=== PATIENT | male | born 1960 | race Hispanic/Latino ===

== ENCOUNTER 2016-05-13 07:58 | Emergency (ER) | payer OTHER ==
[2016-05-13 08:14] VITALS: BMI 30.4
[2016-05-13 08:18] VITALS: PULSE 85; RESP 18; TEMP 98.6; O2SAT 98
[2016-05-13 08:19] VITALS: BP 124/80
--- NOTE | 2016-05-13 09:08 | ED PDOC ---
Arrival/HPI - General Chief Complaint: Finger,Hand,&Wrist Time Seen by Provider: 05/13/16 08:31 Historian: Patient - History of Present Illness Narrative History of Present Illness (Text): 05/13/16 09:08 A 56 year old male, whose past medical history includes CAD with 3 stents on Plavix, DVT on Eliquis, Angina, diabetes, asthma and GERD, presents to the emergency department complaining of left wrist pain for 2 days. Patient reports while hiking 2 days ago he felt a sharp pain in his left hand when pushing himself on rock. Patient states the pain is worse with movement and relived at rest. Patient denies any fever, nausea, vomiting, diarrhea, chest pain, shortness of breath, numbness, tingling, weakness or any other complaints. Patient reports 2 cardiac catheterizations perfomed on left wrist, last procedure was on 03/21/2016. PMD: Emeli Conference Coordinator: Dr. Kong Time/Duration: Other (2 days) Symptom Course: Unchanged Quality: Other Context: Other Past Medical History - Provider Review Nursing Documentation Reviewed: Yes - Infectious Disease Hx of Infectious Diseases: None - Tetanus Immunization Tetanus Immunization: Unknown - Cardiac Other/Comment: 3 cardiac stent - Pulmonary Hx Respiratory Disorders: Yes (PULMONARY EMBOLISM 10-15) Hx Asthma: Yes Hx Bronchitis: Yes Hx Pneumonia: Yes - Neurological Hx Paralysis: No - HEENT Hx HEENT Disorder: No - Renal Hx Renal Disorder: No - Endocrine/Metabolic Hx Endocrine Disorders: Yes Hx Diabetes Mellitus Type 1: Yes - Hematological/Oncological Hx Blood Transfusions: No Hx Blood Transfusion Reaction: No - Integumentary Hx Dermatological Disorder: No - Musculoskeletal/Rheumatological Hx Musculoskeletal Disorders: No - Gastrointestinal Hx Gastrointestinal Disorders: Yes (CONSTIPATION) Hx Diverticulitis: No Hx Gastroesophageal Reflux: Yes - Genitourinary/Gynecological Hx Genitourinary Disorders: No - Psychiatric Hx Substance Use: No - Surgical History Hx Amputation: No Hx Appendectomy: No Hx Cardiac Catheterization: No Hx Cholecystectomy: No Hx Coronary Stent: No Hx Gastric Bypass Surgery: No Hx Hysterectomy: No Hx Joint Replacement: No Hx Kidney Transplant: No Hx Liver Transplant: No Hx Mastectomy: No Hx Open Heart Surgery: No Hx Orthopedic Surgery: No Hx Splenectomy: No Hx Valve Replacement: No Other/Comment: LEFT THUMB SCAR .WAS PUTTING UP A TENT,THUMB GOT CAUGHT IN A PEG. PER PATIENT.HAD 2 STITCHES HE STITCHED HIMSELF. - Anesthesia Hx Anesthesia Reactions: (NEVER HAD ANESTHESIA) Hx Malignant Hyperthermia: No - Suicidal Assessment Feels Threatened In Home Enviroment: No Family/Social History - Physician Review Nursing Documentation Reviewed: Yes Family/Social History: No Known Family HX Smoking Status: Former Smoker Hx Alcohol Use: Yes (BEER OCCASIONALLY QUIT.) Hx Substance Use: No Hx Substance Use Treatment: No Allergies/Home Meds Allergies/Adverse Reactions: Allergies Penicillins Adverse Reaction (Verified 08/17/15 17:20) RASH Home Medications: Home Meds Medication Instructions Recorded Confirmed Ergocalciferol (Vitamin D2) 50,000 iu PO SAT 06/08/13 05/13/16 [Vitamin D2] Insulin Glargine, Recombina 30 unit SQ DAILY 03/11/16 05/13/16 [Lantus] Loratadine [Claritin] 10 mg PO DAILY 03/11/16 05/13/16 GlipiZIDE [Glucotrol] 10 mg PO BID 04/01/16 05/13/16 Apixaban [Eliquis] 1 tab PO BID 04/08/16 05/13/16 MetFORMIN [glucoPHAGE] 1 tab PO BID 04/08/16 05/13/16 Review of Systems - Physician Review All systems were reviewed & negative as marked: Yes - Review of Systems Constitutional: absent: Fevers Respiratory: absent: SOB Cardiovascular: absent: Chest Pain Gastrointestinal: absent: Abdominal Pain, Diarrhea, Nausea, Vomiting Musculoskeletal: Other (Left wrist pain) Neurological: absent: Focal Weakness, Other (Tingling/numbness) Physical Exam Vital Signs Reviewed: Yes Vital Signs Temp Pulse Resp BP Pulse Ox 05/13/16 07:58 98.6 F 85 18 124/80 98 Temperature: Afebrile Blood Pressure: Normal Pulse: Regular Respiratory Rate: Normal Appearance: Positive for: Well-Appearing, Non-Toxic, Comfortable Pain Distress: None Mental Status: Positive for: Alert and Oriented X 3 - Systems Exam Head: Present: Atraumatic, Normocephalic Pupils: Present: PERRL Extroacular Muscles: Present: EOMI Conjunctiva: Present: Normal Upper Extremity: Present: Normal Inspection, Normal ROM, NORMAL PULSES, Tenderness (Reproducible left wrist tenderness when physically exteneded), Neurovascularly Intact, Capillary Refill < 2s, Other (Healed scars on left wrist , no warmth or erythema). No: Cyanosis, Edema, Swelling (in wrist, hand or forearm), Erythema, Temperature Abnormalties, Deformity Neurological: Present: GCS=15, CN II-XII Intact, Speech Normal Skin: Present: Warm, Dry, Normal Color. No: Rashes Psychiatric: Present: Alert, Oriented x 3, Normal Insight, Normal Concentration Medical Decision Making ED Course and Treatment: 05/13/16 09:08 Impression: A 56 year old male with left wrist pain Differential Diagnosis included but are not limited to: Left wrist pain rule out Neuropathy vs. Musculoskeletal Progress Notes: Patient refused Motrin or any pain medication at this time. He states he will take Tylenol at home. I have discussed the plan with the patient, who expresses understanding. Patient in agreement with plan to be discharged home. Patient is stable for discharge. Patient was instructed to do stretching exercises at home and follow up with physician or return if symptoms worsen or new concerning symptoms arise. - Scribe Statement The provider has reviewed the documentation as recorded by the Dae Licona Provider Scribe Attestation: All medical record entries made by the Scribe were at my direction and personally dictated by me. I have reviewed the chart and agree that the record accurately reflects my personal performance of the history, physical exam, medical decision making, and the department course for this patient. I have also personally directed, reviewed, and agree with the discharge instructions and disposition. Disposition/Present on Arrival - Present on Arrival Any Indicators Present on Arrival: No History of DVT/PE: Yes History of Uncontrolled Diabetes: No Urinary Catheter: No History of Decub. Ulcer: No History Surgical Site Infection Following: None - Disposition Have Diagnosis and Disposition been Completed?: Yes Diagnosis: Wrist pain, left, Neuropathy Disposition: HOME/ ROUTINE Disposition Time: 09:10 Patient Plan: Discharge Condition: IMPROVED Discharge Instructions (ExitCare): Peripheral Neuropathy (ED), Arthralgia (ED) Additional Instructions: Cassy Hua, thank you for letting us take care of you today. Your provider was Dr. Luis. You were treated for Neuropathy, Left Wrist Pain. The emergency medical care you received today was directed at your acute symptoms. If you were prescribed any medication, please fill it and take as directed. It may take several days for your symptoms to resolve. Return to the Emergency Department if your symptoms worsen, do not improve, or if you have any other problems. Please contact your doctor or call one of the physicians/clinics you have been referred to that are listed on the Patient Visit Information form that is included in your discharge packet. Bring any paperwork you were given at discharge with you along with any medications you are taking to your follow up visit. Our treatment cannot replace ongoing medical care by a primary care provider (PCP) outside of the emergency department. Thank you for allowing the [facility] team to be part of your care today. If you had an X-Ray or CT scan: A Radiologist will review the ED reading if any change in treatment is needed we will contact you. If you had a blood, urine, or wound culture: It will take several days for the results, if any change in treatment is needed we will contact you. If you had an STI test: It will take 48 hours for the results. Please call after 1 week if you have not heard back. Referrals: Melissa Sainz MD [Primary Care Provider] - Follow up with primary Forms: WORK NOTE
== END 2016-05-13 09:15 | disposition home or self-care (01) ==
LOC: ED 07:58
DX: M25.532 Pain in left wrist (principal); G62.9 Polyneuropathy, unspecified

== ENCOUNTER 2016-08-16 23:10 | Emergency (ER) | payer OTHER ==
[2016-08-16 23:17] VITALS: BMI 29.1
[2016-08-16 23:27] VITALS: RESP 16; TEMP 98.1
--- NOTE | 2016-08-16 23:48 | ED PDOC ---
Arrival/HPI - General Chief Complaint: Finger,Hand,&Wrist Time Seen by Provider: 08/16/16 23:23 Historian: Patient - History of Present Illness Narrative History of Present Illness (Text): 08/16/16 23:49 Patient reports injuring his right hand when when he fell at home 4 days ago. Patient states that he went for an outpatient x-ray of his right hand and was diagnosed with a fracture at the fifth metacarpal, was advised to follow-up with an orthopedist. He states that he was able to obtain an appointment with an orthopedic doctor in [place] 12 days from today, however he does not have a splint on his right hand. Patient states that he is here today for concern of continued swelling and that he is on Eliquis and Plavix. Otherwise: (-) other injury, (-) numbness. PMD Emeli Past Medical History - Provider Review Nursing Documentation Reviewed: Yes - Infectious Disease Hx of Infectious Diseases: None - Tetanus Immunization Tetanus Immunization: Unknown - Cardiac Hx Cardiac Disorders: Yes Other/Comment: 3 cardiac stent - Pulmonary Hx Respiratory Disorders: Yes (PULMONARY EMBOLISM 10-15) Hx Asthma: Yes Hx Bronchitis: Yes Hx Pneumonia: Yes - Neurological Hx Paralysis: No - HEENT Hx HEENT Disorder: No - Renal Hx Renal Disorder: No - Endocrine/Metabolic Hx Endocrine Disorders: Yes Hx Diabetes Mellitus Type 1: Yes - Hematological/Oncological Hx Blood Transfusions: No Hx Blood Transfusion Reaction: No - Integumentary Hx Dermatological Disorder: No - Musculoskeletal/Rheumatological Hx Musculoskeletal Disorders: No - Gastrointestinal Hx Gastrointestinal Disorders: Yes (CONSTIPATION) Hx Diverticulitis: No Hx Gastroesophageal Reflux: Yes - Genitourinary/Gynecological Hx Genitourinary Disorders: No - Psychiatric Hx Emotional Abuse: No Hx Physical Abuse: No Hx Substance Use: No - Surgical History Hx Amputation: No Hx Appendectomy: No Hx Cardiac Catheterization: No Hx Cholecystectomy: No Hx Coronary Stent: No Hx Gastric Bypass Surgery: No Hx Hysterectomy: No Hx Joint Replacement: No Hx Kidney Transplant: No Hx Liver Transplant: No Hx Mastectomy: No Hx Open Heart Surgery: No Hx Orthopedic Surgery: No Hx Splenectomy: No Hx Valve Replacement: No Other/Comment: LEFT THUMB SCAR .WAS PUTTING UP A TENT,THUMB GOT CAUGHT IN A PEG. PER PATIENT.HAD 2 STITCHES HE STITCHED HIMSELF. (from previous triage) - Anesthesia Hx Anesthesia: Yes Hx Anesthesia Reactions: (NEVER HAD ANESTHESIA) Hx Malignant Hyperthermia: No - Suicidal Assessment Feels Threatened In Home Enviroment: No Family/Social History - Physician Review Nursing Documentation Reviewed: Yes Family/Social History: No Known Family HX Smoking Status: Former Smoker Hx Alcohol Use: Yes (BEER OCCASIONALLY QUIT.) Hx Substance Use: No Hx Substance Use Treatment: No Allergies/Home Meds Allergies/Adverse Reactions: Allergies peanut Allergy (Verified 08/16/16 23:17) RASH Penicillins Adverse Reaction (Verified 08/17/15 17:20) RASH Home Medications: Home Meds Medication Instructions Recorded Confirmed Ergocalciferol (Vitamin D2) 50,000 iu PO SAT 06/08/13 08/16/16 [Vitamin D2] Loratadine [Claritin] 10 mg PO DAILY 03/11/16 08/16/16 Apixaban [Eliquis] 1 tab PO BID 04/08/16 08/16/16 MetFORMIN [glucoPHAGE] 1 tab PO BID 04/08/16 08/16/16 Folic Acid [Folic Acid] 1 mg PO DAILY 08/16/16 08/16/16 Gemfibrozil [Lopid] 600 mg PO DAILY 08/16/16 08/16/16 Naproxen [Naprosyn] 500 mg PO BID 08/16/16 08/16/16 Repaglinide [Prandin] 2 mg PO TID 08/16/16 08/16/16 Review of Systems - Review of Systems Constitutional: Normal. absent: Fatigue, Weight Change, Fevers Musculoskeletal: Normal, Arthralgias. absent: Back Pain, Neck Pain Skin: Normal. absent: Rash, Pruritis, Skin Lesions Physical Exam - Physical Exam Narrative Physical Exam (Text): 08/16/16 23:48 GENERAL APPEARANCE: Patient is awake, alert, oriented x 3, in no acute distress. SKIN: Warm, (-) rash, (-) lesions. UPPER EXTREMITY: (+) Tenderness, (+) mild swelling, (-) ecchymosis of the dorsal aspect of the right hand; (-) crepitus, (-) deformity. Tendon function intact. (-) distal neurovascular deficit. 2 point discrimination intact. Remainder of hand, digits and wrist: (-) injury. Vital Signs Temp Pulse Resp BP Pulse Ox 08/16/16 23:26 98.1 F 74 16 143/92 H 97 Medical Decision Making ED Course and Treatment: 08/16/16 23:46 48-year-old male presents to the emergency room for swelling and bruising to the right hand after he tripped and fell and sustained a fracture. Orthoglass ulnar gutter splint and shoulder sling applied by PA. Neurovascular intact post splint application. Patient advised to not remove the splint and to follow up with orthopedic doctor as scheduled. Patient states he fully agrees with and understands discharge instructions. States that heagrees with the plan and disposition. Verbalized and repeated discharge instructions and plan. I have given the patient opportunity to ask any additional questions. Follow up with orthopedic doctor in 1-2 days without fail. Return to the emergency room at any time for any new or worsening symptoms. - PA / [employer] / Resident Statement /DO has reviewed & agrees with the documentation as recorded. Disposition/Present on Arrival - Present on Arrival Any Indicators Present on Arrival: Yes History of DVT/PE: Yes History of Uncontrolled Diabetes: No Urinary Catheter: No History of Decub. Ulcer: No History Surgical Site Infection Following: None - Disposition Have Diagnosis and Disposition been Completed?: Yes Diagnosis: Hand fracture, right Disposition: HOME/ ROUTINE Disposition Time: 23:30 Patient Plan: Discharge Patient Problems: Current Active Problems Problem Status Onset Hand fracture, right Acute Condition: STABLE Discharge Instructions (ExitCare): Hand Fracture (ED) Print Language: WELSH Additional Instructions: Follow-up with orthopedic doctor as scheduled. Do not remove the splint. Take [id number] Tylenol as needed for pain. Return the ER at any time for any new or worsening symptoms. Referrals: Melissa Sainz MD [Primary Care Provider] - Follow up with primary
[2016-08-17 00:01] VITALS: BP 140/89; PULSE 70; O2SAT 98
== END 2016-08-17 00:01 | disposition home or self-care (01) ==
LOC: ED 23:10
DX: S62.396D Other fracture of fifth metacarpal bone, right hand, subsequent encounter for fracture with routine healing (principal); W01.0XXD Fall on same level from slipping, tripping and stumbling without subsequent striking against object, subsequent encounter

== ENCOUNTER 2016-10-03 19:55 | Observation (INO) | payer OTHER ==
[2016-10-03 19:56] VITALS: BMI 28.5
[2016-10-03 21:05] LABS: HEMATOCRIT 38.8 % (42.0-52.0); MEAN CORPUSCULAR HEMOGLOBIN 27.6 pg (25.0-35.0); MEAN PLATELET VOLUME 9.8 fl (7.0-11.0); RED CELL DISTRIBUTION WIDTH 12.9 % (11.5-14.5)
[2016-10-03 21:17] LABS: ALB/GLOB RATIO 1.6 (1.1-1.8); ALKALINE PHOSPHATASE 65 U/L (38-133); ALT/SGPT 33 U/L (7-56); AST/SGOT 16 U/L (15-59); BILIRUBIN,TOTAL 0.3 mg/dL (0.2-1.3); BLOOD UREA NITROGEN 19 mg/dL (7-21); CALCIUM 9.2 mg/dL (8.4-10.5); CARBON DIOXIDE 27 mmol/L (21-33); CHLORIDE 104 mmol/L (95-110); GFR AFRICAN-AMERICAN > 60; GLUCOSE,RANDOM 214 mg/dL (70-110); POTASSIUM 4.1 mmol/L (3.6-5.0); SODIUM 140 mmol/L (132-148); TOTAL PROTEIN 6.4 g/dL (5.8-8.3)
[2016-10-03 21:24] LABS: INR 1.04 (0.93-1.08); PARTIAL THROMBOPLASTIN TIME 25.7 Seconds (23.7-30.8)
[2016-10-03 21:30] LABS: TROPONIN I < 0.01 ng/mL
--- NOTE | 2016-10-03 22:35 | ED PDOC ---
Arrival/HPI - General Chief Complaint: Back Pain Time Seen by Provider: 10/03/16 20:23 Historian: Patient - History of Present Illness Narrative History of Present Illness (Text): 10/03/16 20:45 Brayan Sequeira is a 56 year old male, whose past medical history includes diabetes and CAD s/p multiple stents, who presents to the ED for chest pressure since this evening. Patient states while he was at the library and was apparently involved in any argument earlier. Patient states he came to the ER due to the chest discomfort, but notes at present time chest discomfort has improved. Patient reports some back discomfort earlier, denies any currently. Patient denies any shortness of breath, fever, chills, cough, abdominal pain, nausea, vomiting, diarrhea, neck pain, headache, dizziness, or any other complaints. Symptom Onset: Gradual Symptom Course: Unchanged Quality: Pressure Activities at Onset: Light Context: Other (Library) Past Medical History - Provider Review Nursing Documentation Reviewed: Yes - Infectious Disease Hx of Infectious Diseases: None - Tetanus Immunization Tetanus Immunization: Unknown - Cardiac Hx Cardiac Disorders: Yes Hx Hypertension: Yes - Pulmonary Hx Respiratory Disorders: Yes (PULMONARY EMBOLISM 10-15) Hx Asthma: Yes Hx Bronchitis: Yes Hx Pneumonia: Yes - Neurological Hx Neurological Disorder: No Hx Paralysis: No - HEENT Hx HEENT Disorder: No - Renal Hx Renal Disorder: No - Endocrine/Metabolic Hx Endocrine Disorders: Yes Hx Diabetes Mellitus Type 2: Yes - Hematological/Oncological Hx Blood Disorders: No Hx Blood Transfusions: No Hx Blood Transfusion Reaction: No - Integumentary Hx Dermatological Disorder: No - Musculoskeletal/Rheumatological Hx Musculoskeletal Disorders: No - Gastrointestinal Hx Gastrointestinal Disorders: Yes (CONSTIPATION) Hx Diverticulitis: No Hx Gastroesophageal Reflux: Yes - Genitourinary/Gynecological Hx Genitourinary Disorders: No - Psychiatric Hx Emotional Abuse: No Hx Physical Abuse: No Hx Substance Use: No - Surgical History Hx Amputation: No Hx Appendectomy: No Hx Cardiac Catheterization: Yes (x3) Hx Cholecystectomy: No Hx Coronary Stent: No Hx Gastric Bypass Surgery: No Hx Hysterectomy: No Hx Joint Replacement: No Hx Kidney Transplant: No Hx Liver Transplant: No Hx Mastectomy: No Hx Open Heart Surgery: No Hx Orthopedic Surgery: No Hx Splenectomy: No Hx Valve Replacement: No - Anesthesia Hx Anesthesia: Yes Hx Anesthesia Reactions: (NEVER HAD ANESTHESIA) Hx Malignant Hyperthermia: No - Suicidal Assessment Feels Threatened In Home Enviroment: No Family/Social History - Physician Review Nursing Documentation Reviewed: Yes Family/Social History: Unknown Family HX Smoking Status: Former Smoker Hx Alcohol Use: Yes (BEER OCCASIONALLY QUIT.) Hx Substance Use: No Hx Substance Use Treatment: No Allergies/Home Meds Allergies/Adverse Reactions: Allergies peanut Allergy (Verified 10/03/16 20:08) RASH Penicillins Adverse Reaction (Verified 10/03/16 20:08) RASH Home Medications: Home Meds Medication Instructions Recorded Confirmed Apixaban [Eliquis] 1 tab PO BID 04/08/16 10/03/16 MetFORMIN [glucoPHAGE] 1 tab PO BID 04/08/16 10/03/16 SITagliptin [Januvia] 0 mg PO DAILY 10/03/16 10/03/16 Review of Systems - Physician Review All systems were reviewed & negative as marked: Yes - Review of Systems Constitutional: Normal. absent: Fevers Eyes: Normal ENT: Normal Respiratory: Normal. absent: SOB, Cough Cardiovascular: Chest Pain Gastrointestinal: Normal. absent: Abdominal Pain, Diarrhea, Nausea, Vomiting Genitourinary Male: Normal. absent: Dysuria, Frequency, Hematuria, Urinary Output Changes Musculoskeletal: Normal. absent: Back Pain, Neck Pain Skin: Normal. absent: Rash Neurological: Normal. absent: Headache, Dizziness Endocrine: Normal Hemo/Lymphatic: Normal Psychiatric: Normal Physical Exam Vital Signs Reviewed: Yes Vital Signs Pulse Resp BP Pulse Ox 10/03/16 23:15 74 18 131/80 97 10/03/16 20:15 76 16 130/90 98 Temperature: Afebrile Blood Pressure: Normal Pulse: Regular Respiratory Rate: Normal Appearance: Positive for: Well-Appearing, Non-Toxic, Comfortable Pain Distress: None Mental Status: Positive for: Alert and Oriented X 3 - Systems Exam Head: Present: Atraumatic, Normocephalic Pupils: Present: PERRL Extroacular Muscles: Present: EOMI Conjunctiva: Present: Normal Mouth: Present: Moist Mucous Membranes Neck: Present: Normal Range of Motion Respiratory/Chest: Present: Clear to Auscultation, Good Air Exchange. No: Respiratory Distress, Accessory Muscle Use Cardiovascular: Present: Regular Rate and Rhythm, Normal S1, S2. No: Murmurs Abdomen: Present: Normal Bowel Sounds. No: Tenderness, Distention, Peritoneal Signs Back: Present: Normal Inspection Upper Extremity: Present: Normal Inspection. No: Cyanosis, Edema Lower Extremity: Present: Normal Inspection. No: Edema Neurological: Present: GCS=15, CN II-XII Intact, Speech Normal Skin: Present: Warm, Dry, Normal Color. No: Rashes Psychiatric: Present: Alert, Oriented x 3, Normal Insight, Normal Concentration Medical Decision Making ED Course and Treatment: 10/03/16 20:45 Impression: 56 year old male c/o chest pressure today. Plan: -- EKG -- CXR -- Labs, cardiac enzymes -- Reassess and disposition Progress Notes: Reviewed EKG, NSR at [address] Non-specific ST/T wave changes. Pt refused CXR. 10/03/16 23:45 Case discussed with medical microbiologist production leader, who is aware and agrees with plan. 10/03/16 23:[address] Kim, who is aware and agrees with plan. Accepts pt in to hospitalist service. - Lab Interpretations Lab Results: 10/03/16 20:45 10/03/16 20:45 Lab Results 10/03/16 20:45: WBC 7.0, RBC 4.79, Hgb 13.2 L, Hct 38.8 L, MCV 81.0, MCH 27.6, MCHC 34.0, RDW 12.9, Plt Count 189, MPV 9.8 10/03/16 20:45: Sodium 140, Potassium 4.1, Chloride 104, Carbon Dioxide 27, Anion Gap 13, BUN 19, Creatinine 0.8, Est GFR ( Amer) > 60, Est GFR (Non- Af Amer) > 60, Random Glucose 214 H, Calcium 9.2, Total Bilirubin 0.3, AST 16, ALT 33, Alkaline Phosphatase 65, Lactate Dehydrogenase 386, Total Creatine Kinase 116, Troponin I < 0.01, Total Protein 6.4, Albumin 3.9, Globulin 2.5, Albumin/Globulin Ratio 1.6 10/03/16 20:45: PT 11.2, INR 1.04, APTT 25.7 I have reviewed the lab results: Yes - EKG Interpretation Interpreted by ED Physician: Yes Type: 12 lead EKG - Medication Orders Current Medication Orders: Acetaminophen (Tylenol 325mg Tab) 650 mg PO Q6H PRN PRN Reason: Pain, moderate (4-7) Apixaban (Eliquis) 5 mg PO BID [facility] PRN Reason: Protocol Clopidogrel Bisulfate (Plavix) 75 mg PO DAILY [facility] Pantoprazole Sodium (Protonix Inj) 40 mg IVP DAILY [facility] Sitagliptin Phosphate (Januvia) 100 mg PO DAILY [facility] Discontinued Medications Aspirin (Aspirin) 325 mg PO STAT [facility] Stop: 10/04/16 01:12 Last Admin: 10/04/16 02:30 Dose: - Scribe Statement The provider has reviewed the documentation as recorded by the Dae Campuzano Provider Scribe Attestation: All medical record entries made by the Osmelibwill were at my direction and personally dictated by me. I have reviewed the chart and agree that the record accurately reflects my personal performance of the history, physical exam, medical decision making, and the department course for this patient. I have also personally directed, reviewed, and agree with the discharge instructions and disposition. Disposition/Present on Arrival - Present on Arrival Any Indicators Present on Arrival: No History of DVT/PE: Yes History of Uncontrolled Diabetes: No Urinary Catheter: No History of Decub. Ulcer: No History Surgical Site Infection Following: None - Disposition Have Diagnosis and Disposition been Completed?: Yes Diagnosis: Chest pain Disposition: HOSPITALIZED Disposition Time: 23:52 Patient Plan: Observation Patient Problems: Current Active Problems Problem Status Onset Chest pain Acute Condition: STABLE
--- NOTE | 2016-10-04 01:05 | CP.PCM.HP ---
<Nolan Mack - Last Filed: 10/04/16 01:18> History of Present Illness - History of Present Illness History of Present Illness: CC: Chest discomfort/back pain HPI: Patient is a 56 year old male with PMH sig for DM2, DVT, PE, CAD s/p PTCA of LADx3, HLD, and hx of HTN who presents via EMS complaining of chest discomfort. Patient reports earlier this evening he was at the local library trying to access a computer and was in a verbal altercation with the staff. He reports that the incident was a stressful event and that as a result he began feeling symptoms of elevated heart rate, chest pressure and some mild back pain located between his shoulder blades. He denies any sharp pain, nor radiation of chest discomfort. He states that at the time of the event he did become nauseous but denies vomiting or diaphoresis. Patient reports one hour after onset he began to feel more at his baseline. He denies taking any nitro or pain relieving medication. Associated symptoms include ANGELES and mild numbness in legs. He denies abdominal pain, fever, chills or syncope. 12 point ROS negative except for what is mentioned in HPI. PMH: As above PSH: None FMH: Strong for DM2, uknown for father SOCHX: Tobacco: Denies, ETOH: Denies, ID: Denies ALL: PCN, Peanuts MEDS: - Lantus 30 units a day - Metformin 1000 mg a day - Plavix 75mg daily - Eliquis 5mg BID - Glipizide 10mg daily - Januvia 100mg daily PMD: Dr. Aguirre Present on Admission - Present on Admission Any Indicators Present on Admission: Yes History of DVT/PE: Yes History of Uncontrolled Diabetes: No Urinary Catheter: No Decubitus Ulcer Present: No Review of Systems - Review of Systems All systems: reviewed and no additional remarkable complaints except Review of Systems: except for mentioned in HPI Past Patient History - Infectious Disease Hx of Infectious Diseases: None - Tetanus Immunizations Tetanus Immunization: Unknown - Past Social History Smoking Status: Former Smoker Alcohol: None Drugs: Denies - CARDIAC Hx Cardiac Disorders: Yes Hx Hypertension: Yes - PULMONARY Hx Respiratory Disorders: Yes (PULMONARY EMBOLISM 10-15) Hx Asthma: Yes Hx Bronchitis: Yes Hx Pneumonia: Yes - NEUROLOGICAL Hx Neurological Disorder: No Hx Paralysis: No - HEENT Hx HEENT Problems: No - RENAL Hx Chronic Kidney Disease: No - ENDOCRINE/METABOLIC Hx Endocrine Disorders: Yes Hx Diabetes Mellitus Type 2: Yes - HEMATOLOGICAL/ONCOLOGICAL Hx Blood Disorders: No Hx Blood Transfusions: No Hx Blood Transfusion Reaction: No - INTEGUMENTARY Hx Dermatological Problems: No - MUSCULOSKELETAL/RHEUMATOLOGICAL Hx Musculoskeletal Disorders: No - GASTROINTESTINAL Hx Gastrointestinal Disorders: Yes (CONSTIPATION) Hx Diverticulitis: No Hx Gastroesophageal Reflux: Yes - GENITOURINARY/GYNECOLOGICAL Hx Genitourinary Disorders: No - PSYCHIATRIC Hx Emotional Abuse: No Hx Physical Abuse: No Hx Substance Use: No - SURGICAL HISTORY Hx Amputation: No Hx Appendectomy: No Hx Cardiac Catheterization: Yes (x3) Hx Cholecystectomy: No Hx Coronary Stent: No Hx Gastric Bypass Surgery: No Hx Hysterectomy: No Hx Joint Replacement: No Hx Kidney Transplant: No Hx Liver Transplant: No Hx Mastectomy: No Hx Open Heart Surgery: No Hx Orthopedic Surgery: No Hx Splenectomy: No Hx Valve Replacement: No - ANESTHESIA Hx Anesthesia: Yes Hx Anesthesia Reactions: (NEVER HAD ANESTHESIA) Hx Malignant Hyperthermia: No Meds Allergies/Adverse Reactions: Allergies Allergy/AdvReac Type Severity Reaction Status Date / Time peanut Allergy RASH Verified 10/03/16 20:08 Penicillins AdvReac RASH Verified 10/03/16 20:08 Physical Exam - Head Exam Head Exam: ATRAUMATIC, NORMAL INSPECTION, NORMOCEPHALIC - Eye Exam Eye Exam: EOMI, PERRL - ENT Exam ENT Exam: Mucous Membranes Moist, Normal Exam - Neck Exam Neck exam: Positive for: Normal Inspection - Respiratory Exam Respiratory Exam: Clear to Auscultation Bilateral, NORMAL BREATHING PATTERN - Cardiovascular Exam Cardiovascular Exam: REGULAR RHYTHM, +S1, +S2. absent: Tachycardia, JVD - GI/Abdominal Exam GI & Abdominal Exam: Normal Bowel Sounds, Soft - Extremities Exam Extremities exam: Positive for: full ROM, normal inspection, pedal pulses present. Negative for: calf tenderness, pedal edema - Back Exam Back exam: FULL ROM, NORMAL INSPECTION - Neurological Exam Neurological exam: Alert, CN II-XII Intact, Normal Gait, Oriented x3, Reflexes Normal - Psychiatric Exam Psychiatric exam: Normal Affect, Normal Mood - Skin Skin Exam: Dry, Intact, Normal Color, Warm Results - Labs Result Diagrams: 10/03/16 20:45 10/03/16 20:45 Assessment & Plan - Assessment and Plan (Free Text) Assessment: Patient is a 56 year old male with PMH sig for DM2, DVT, PE, CAD s/p PTCA of LADx3, HLD, and hx of HTN who presents via EMS complaining of chest discomfort. He is being monitored and evaluated for his chest discomfort. Plan: 1. Atypical Chest Pain - EKG NSR, NO ST segment elevations/depression or T wave inversions - Hx of CAD s/p 3 stents, recent stress test in 09/2016 found to be normal - Troponin negative x1, trend troponins x2 - Cardio consult, Dr. Dilan Perez - ASA 325mg - npo 2. Hx of DVT/PE - Continue Eliquis 5mg BID - PT/INR check 3. Hx of DM2 - Januvia, hold metformin - ACHS 4. Hx of HTN - Stable, continue to monitor 5. GI ppx - Protonix Case discussed and reviewed with attending - Date & Time Date: 10/04/16 Time: 01:06 <Stu Kim P - Last Filed: 10/04/16 06:44> Results - Vital Signs Recent Vital Signs: Last Vital Signs Temp Pulse 74 10/03/16 23:15 Resp 18 10/03/16 23:15 BP 131/80 10/03/16 23:15 Pulse Ox 97 10/03/16 23:15 - Labs Result Diagrams: 10/04/16 03:05 10/04/16 03:05 Labs: Laboratory Results - last 24 hr 10/04/16 10/04/16 10/04/16 03:05 03:05 03:05 WBC 7.5 RBC 4.77 Hgb 13.2 L Hct 38.6 L MCV 80.9 MCH 27.7 MCHC 34.2 RDW 13.0 Plt Count 171 MPV 9.4 Gran % 57.0 Lymph % (Auto) 30.7 [place] % (Auto) 9.4 H Eos % (Auto) 2.4 Baso % (Auto) 0.5 Gran # 4.28 Lymph # 2.3 [place] # 0.7 H Eos # 0.2 Baso # 0.04 PT 11.4 INR 1.06 Sodium 140 Potassium 3.8 Chloride 103 Carbon Dioxide 28 Anion Gap 13 BUN 18 Creatinine 0.8 Est GFR ( Amer) > 60 Est GFR (Non-Af Amer) > 60 Random Glucose 204 H Calcium 9.1 Total Bilirubin 0.4 AST 24 ALT 38 Alkaline Phosphatase 56 Troponin I < 0.01 Total Protein 6.4 Albumin 3.8 Globulin 2.6 Albumin/Globulin Ratio 1.5 Attending/Attestation - Attestation I have personally seen and examined this patient.: Yes I have fully participated in the care of the patient.: Yes I have reviewed all pertinent clinical information: Yes Notes (Text): Assessment * Atypical CP after verbal altercation, with initial negative w/u, recent negative stress test * H/o CAD LAD x3 stents last mar, 2016 * H/o DVT/PE in Nov 2014, with history of relative imobility with driving still on Eliquis * IDDM Plan * Serial enzymes * Observe in tele.
[2016-10-04 03:10] LABS: ADD MANUAL DIFF? NO
[2016-10-04 03:19] LABS: BASO # 0.04 K/mm3 (0.0-2.0); BASO % 0.5 % (0.0-3.0); EOS # 0.2 (0.0-0.7); EOS % 2.4 % (1.5-5.0); GRAN # 4.28 (1.4-6.5); HEMATOCRIT 38.6 % (42.0-52.0); LYMPH # 2.3 (1.2-3.4); LYMPH % 30.7 % (22.0-35.0); MEAN CELL VOLUME 80.9 fl (80.0-105.0); MEAN CORPUSCULAR HEMOGLOBIN 27.7 pg (25.0-35.0); MEAN CORPUSCULAR HGB CONC 34.2 g/dl (31.0-37.0); MEAN PLATELET VOLUME 9.4 fl (7.0-11.0); MONO # 0.7 (0.1-0.6); MONO % 9.4 % (1.0-6.0); PLATELET COUNT 171 10^3/uL (120.0-450.0); WHITE BLOOD COUNT 7.5 10^3/ul (4.5-11.0)
[2016-10-04 03:23] LABS: INR 1.06 (0.93-1.08)
[2016-10-04 03:26] LABS: ALB/GLOB RATIO 1.5 (1.1-1.8); ALKALINE PHOSPHATASE 56 U/L (38-133); ALT/SGPT 38 U/L (7-56); AST/SGOT 24 U/L (15-59); BILIRUBIN,TOTAL 0.4 mg/dL (0.2-1.3); BLOOD UREA NITROGEN 18 mg/dL (7-21); CALCIUM 9.1 mg/dL (8.4-10.5); CARBON DIOXIDE 28 mmol/L (21-33); CHLORIDE 103 mmol/L (95-110); GFR AFRICAN-AMERICAN > 60; GLUCOSE,RANDOM 204 mg/dL (70-110); POTASSIUM 3.8 mmol/L (3.6-5.0); SODIUM 140 mmol/L (132-148); TOTAL PROTEIN 6.4 g/dL (5.8-8.3)
[2016-10-04 04:27] LABS: TROPONIN I < 0.01 ng/mL
--- NOTE | 2016-10-04 06:31 | CP.PCM.DIS ---
Provider - Provider Date of Admission: 10/03/16 23:50 Attending physician: Blayne Du MD Primary care physician: Zulema Aguirre MD Time Spent in preparation of Discharge (in minutes): 30 Hospital Course - Lab Results Lab Results: Most Recent Lab Values WBC 7.5 10^3/ul (4.5-11.0) 10/04/16 03:05 RBC 4.77 10^6/uL (3.5-6.1) 10/04/16 03:05 Hgb 13.2 g/dL (14.0-18.0) L 10/04/16 03:05 Hct 38.6 % (42.0-52.0) L 10/04/16 03:05 MCV 80.9 fl (80.0-105.0) 10/04/16 03:05 MCH 27.7 pg (25.0-35.0) 10/04/16 03:05 MCHC 34.2 g/dl (31.0-37.0) 10/04/16 03:05 RDW 13.0 % (11.5-14.5) 10/04/16 03:05 Plt Count 171 10^3/uL (120.0-450.0) 10/04/16 03:05 MPV 9.4 fl (7.0-11.0) 10/04/16 03:05 Gran % 57.0 % (50.0-68.0) 10/04/16 03:05 Lymph % (Auto) 30.7 % (22.0-35.0) 10/04/16 03:05 [place] % (Auto) 9.4 % (1.0-6.0) H 10/04/16 03:05 Eos % (Auto) 2.4 % (1.5-5.0) 10/04/16 03:05 Baso % (Auto) 0.5 % (0.0-3.0) 10/04/16 03:05 Gran # 4.28 (1.4-6.5) 10/04/16 03:05 Lymph # 2.3 (1.2-3.4) 10/04/16 03:05 [place] # 0.7 (0.1-0.6) H 10/04/16 03:05 Eos # 0.2 (0.0-0.7) 10/04/16 03:05 Baso # 0.04 K/mm3 (0.0-2.0) 10/04/16 03:05 PT 11.4 Seconds (9.9-11.8) 10/04/16 03:05 INR 1.06 (0.93-1.08) 10/04/16 03:05 APTT 25.7 Seconds (23.7-30.8) 10/03/16 20:45 Sodium 140 mmol/L (132-148) 10/04/16 03:05 Potassium 3.8 mmol/L (3.6-5.0) 10/04/16 03:05 Chloride 103 mmol/L (95-110) 10/04/16 03:05 Carbon Dioxide 28 mmol/L (21-33) 10/04/16 03:05 Anion Gap 13 (10-20) 10/04/16 03:05 BUN 18 mg/dL (7-21) 10/04/16 03:05 Creatinine 0.8 mg/dL (0.5-1.4) 10/04/16 03:05 Est GFR ( Amer) > 60 10/04/16 03:05 Est GFR (Non-Af Amer) > 60 10/04/16 03:05 Random Glucose 204 mg/dL (70-110) H 10/04/16 03:05 Calcium 9.1 mg/dL (8.4-10.5) 10/04/16 03:05 Total Bilirubin 0.4 mg/dL (0.2-1.3) 10/04/16 03:05 AST 24 U/L (15-59) 10/04/16 03:05 ALT 38 U/L (7-56) 10/04/16 03:05 Alkaline Phosphatase 56 U/L (38-133) 10/04/16 03:05 Lactate Dehydrogenase 386 U/L (333-699) 10/03/16 20:45 Total Creatine Kinase 116 U/L (35-230) 10/03/16 20:45 Troponin I < 0.01 ng/mL 10/04/16 03:05 Total Protein 6.4 g/dL (5.8-8.3) 10/04/16 03:05 Albumin 3.8 g/dL (3.0-4.8) 10/04/16 03:05 Globulin 2.6 gm/dL 10/04/16 03:05 Albumin/Globulin Ratio 1.5 (1.1-1.8) 10/04/16 03:05 - Hospital Course Hospital Course: Patient is a 56 year old male who presented with chest discomfort and back pain following a stressful event at the local library earlier on 10/03/2016. Patient was evaluated for atypical chest pain with initial troponin read as negative. Troponin was trended x2 and records were reviewed. Patient was noted to have negative stress test recently prior to admission. Patient was noted to have history of DVT/PE and his eliquis was continued. Patient was admitted to telemetry for observation. Patient decided to leave against medical advice. He was advised of the risks involved including but not limited to heart attack, stroke and . Patient was told to follow up with PMD, water supply technician and other specialists after leaving. Patient was advised to return to the hospital if his symptoms returned or worsened. He was agreeable and was in understanding following discussion. - Date & Time of H&P Date of H&P: 10/04/16 Time of H&P: 20:30 Discharge Exam - Head Exam Head Exam: ATRAUMATIC, NORMAL INSPECTION, NORMOCEPHALIC - Eye Exam Eye Exam: EOMI, PERRL Pupil Exam: PERRL - Respiratory Exam Respiratory Exam: Clear to PA & Lateral, NORMAL BREATHING PATTERN, UNREMARKABLE - Cardiovascular Exam Cardiovascular Exam: REGULAR RHYTHM, +S1, +S2 - GI/Abdominal Exam GI & Abdominal Exam: Normal Bowel Sounds, Soft - Extremities Exam Extremities exam: normal inspection, pedal pulses present - Neurological Exam Neurological exam: Alert, CN II-XII Intact, Normal Gait, Oriented x3, Reflexes Normal - Psychiatric Exam Psychiatric exam: Normal Affect, Normal Mood - Skin Skin Exam: Dry, Intact, Normal Color, Warm Discharge Plan - Follow Up Plan Condition: STABLE Disposition: AGAINST MEDICAL ADVICE Instructions: Chest Pain (DC), Chest Pain (GEN), Pulmonary Embolism (DC), Pulmonary Embolism (GEN), Deep Venous Thrombosis (ED), Deep Venous Thrombosis ( DC), Deep Venous Thrombosis (GEN), Leg Edema (ED) Additional Instructions: 1. Please follow up with PMD with in one week 2. Please follow up with water supply technician in one week 3. Please return to hospital if symptoms return or worsen 4. Please take medications as prescribed Patient in agreement and in understanding with plan Referrals: Zulema Aguirre MD [Primary Care Provider] - Follow up with primary
[2016-10-04 06:48] VITALS: BP 120/76; PULSE 76; RESP 20; TEMP 97.8; O2SAT 98
--- NOTE | 2016-10-04 09:37 | CARD ---
APPROVED REPORT EKG Measurement Heart [id number] <Conclusion> Normal sinus rhythm RSR' or QR pattern in V1 suggests right ventricular conduction delay Borderline ECG
== END 2016-10-04 06:52 | disposition left against medical advice (07) ==
LOC: ED 19:55 → ERH 23:50 → 2RNO 10-04 01:03
PROVIDERS: ADMIT Internal Medicine; ATTEND Internal Medicine
DX: R07.89 Other chest pain (principal); E11.9 Type 2 diabetes mellitus without complications; E78.5 Hyperlipidemia, unspecified; I10 Essential (primary) hypertension; I25.10 Atherosclerotic heart disease of native coronary artery without angina pectoris; J45.909 Unspecified asthma, uncomplicated; K21.9 Gastro-esophageal reflux disease without esophagitis; Z79.4 Long term (current) use of insulin; Z83.3 Family history of diabetes mellitus; Z86.711 Personal history of pulmonary embolism; Z86.718 Personal history of other venous thrombosis and embolism; Z87.01 Personal history of pneumonia (recurrent); Z87.891 Personal history of nicotine dependence; Z95.5 Presence of coronary angioplasty implant and graft; K59.00 Constipation, unspecified; Z88.0 Allergy status to penicillin; Z91.010 Allergy to peanuts
CPT/HCPCS: 36415; 80053; 82550; 82948; 83615; 84484; 85025; 85027; 85610; 85730; 93005; 99285; G0378

== ENCOUNTER 2016-11-03 07:12 | Emergency (ER) | payer OTHER ==
[2016-11-03 07:13] VITALS: BMI 28.5
[2016-11-03 07:48] VITALS: RESP 16; TEMP 98.1
--- NOTE | 2016-11-03 08:13 | ED PDOC ---
Arrival/HPI - General Historian: Patient - History of Present Illness Time/Duration: < week Symptom Onset: Sudden Symptom Course: Unchanged Quality: Pressure Severity Level: 9 <Boris Hernandez - Last Filed: 11/03/16 14:26> <Ximena Salcido - Last Filed: 11/03/16 17:41> - General Chief Complaint: Lower Extremity Problem/Injury Time Seen by Provider: 11/03/16 07:42 - History of Present Illness Narrative History of Present Illness (Text): 11/03/16 08:05 This is a 56 year old male with PMHx DM2, DVT, PE, CAD s/p PCI, HLD, HTN who presents complaining of right lower extremity pain for the past 2 days. Patient states that this feels different from his DVT in 2014 because at the time, pain was localized. Pain on this leg is diffuse and described as a 9/10 pressure sensation. It begins on the mid-anterior thigh and radiates up and down through the whole circumference of the extremity and up to his back per patient. Patient states that he does have back pain but states that it is non- contributory to his current pain and is not radiating down the leg. Patient complains of weakness and unsteady gait secondary to pain. Pain exacerbates with movement and standing but relieved with rest. Patient denies recent trauma to the extremity but admits to history of meniscal injury in the right knee which has not yet been treated. Patient denies fever, chills, chest pain, SOB, abdominal pain, dysuria. PMHx: DM, DVT, PE, CAD s/p PCI, HLD, HTN PSHx: PCI Allergies: Penicillin and peanuts Social: Former smoker quit 30 years ago. Denies alcohol, drugs. Family Hx: DM on mother's side. PMD: Dr. Aguirre (Boris Hernandez) Past Medical History - Infectious Disease Hx of Infectious Diseases: None - Tetanus Immunization Tetanus Immunization: Unknown - Cardiac Hx Cardiac Disorders: Yes Hx Hypertension: Yes - Pulmonary Hx Respiratory Disorders: Yes (PULMONARY EMBOLISM 10-15) Hx Asthma: Yes Hx Bronchitis: Yes Hx Pneumonia: Yes - Neurological Hx Neurological Disorder: No - HEENT Hx HEENT Disorder: No - Renal Hx Renal Disorder: No - Endocrine/Metabolic Hx Endocrine Disorders: Yes Hx Diabetes Mellitus Type 2: Yes - Hematological/Oncological Hx Blood Disorders: No - Integumentary Hx Dermatological Disorder: No - Musculoskeletal/Rheumatological Hx Musculoskeletal Disorders: No - Gastrointestinal Hx Gastrointestinal Disorders: Yes Hx Diverticulitis: No Hx Gastroesophageal Reflux: Yes - Genitourinary/Gynecological Hx Genitourinary Disorders: No - Psychiatric Hx Substance Use: No - Surgical History Hx Cardiac Catheterization: Yes (x3) Other/Comment: 3 stents - Anesthesia Hx Anesthesia: Yes Hx Anesthesia Reactions: No Hx Malignant Hyperthermia: No - Suicidal Assessment Feels Threatened In Home Enviroment: No <Boris Hernandez - Last Filed: 11/03/16 14:26> Family/Social History Smoking Status: Former Smoker Hx Alcohol Use: No Hx Substance Use: No Hx Substance Use Treatment: No <Boris Hernandez - Last Filed: 11/03/16 14:26> Family/Social History: No Known Family HX <Ximena Salcido - Last Filed: 11/03/16 17:41> Allergies/Home Meds <Boris Hernandez - Last Filed: 11/03/16 14:26> <Ximena Salcido - Last Filed: 11/03/16 17:41> Allergies/Adverse Reactions: Allergies peanut Allergy (Verified 11/03/16 07:28) RASH Penicillins Adverse Reaction (Verified 11/03/16 07:28) RASH Home Medications: Home Meds Medication Instructions Recorded Confirmed Apixaban [Eliquis] 1 tab PO BID 04/08/16 11/03/16 MetFORMIN [glucoPHAGE] 1 tab PO BID 04/08/16 11/03/16 GlipiZIDE [Glucotrol] 10 mg PO DAILY 11/03/16 11/03/16 Review of Systems - Review of Systems Constitutional: Normal. absent: Fevers Eyes: Normal ENT: Normal Respiratory: Normal. absent: SOB Cardiovascular: Normal. absent: Chest Pain Gastrointestinal: Normal. absent: Abdominal Pain Genitourinary Male: Normal. absent: Dysuria Musculoskeletal: Back Pain, Other (right lower extremity pain) Skin: Normal Neurological: Normal, Other (weakness secondary to pain) Endocrine: Normal Hemo/Lymphatic: Normal Psychiatric: Normal <Boris Hernandez - Last Filed: 11/03/16 14:26> Physical Exam Vital Signs Reviewed: Yes Temperature: Afebrile Blood Pressure: Normal Pulse: Regular Respiratory Rate: Normal Appearance: Positive for: Well-Appearing Pain Distress: None Mental Status: Positive for: Alert and Oriented X 3 - Systems Exam Head: Present: Atraumatic, Normocephalic Pupils: Present: PERRL Extroacular Muscles: Present: EOMI Conjunctiva: Present: Normal Mouth: Present: Moist Mucous Membranes Neck: Present: Normal Range of Motion Respiratory/Chest: Present: Clear to Auscultation, Good Air Exchange. No: Accessory Muscle Use Cardiovascular: Present: Regular Rate and Rhythm, Normal S1, S2 Abdomen: Present: Normal Bowel Sounds. No: Tenderness, Distention Upper Extremity: Present: Normal Inspection, NORMAL PULSES. No: Edema Lower Extremity: Present: Normal Inspection, CALF TENDERNESS (right), NORMAL PULSES (pulses equal bilaterally), Neurovascularly Intact. No: Edema Neurological: Present: GCS=15, CN II-XII Intact, Motor Func Grossly Intact, Normal Sensory Function Skin: Present: Warm, Dry, Normal Color. No: Rashes Psychiatric: Present: Alert, Oriented x 3 <Boris Hernandez - Last Filed: 11/03/16 14:26> Medical Decision Making <Boris Hernandez - Last Filed: 11/03/16 14:26> - Lab Interpretations I have reviewed the lab results: Yes <Ximena Salcido - Last Filed: 11/03/16 17:41> ED Course and Treatment: 11/03/16 08:20 CBC, CMP, Coags, Duplex Right Lower extremity veins 11/03/16 09:34 Ultrasound preliminary reading negative 11/03/16 11:51 Patient's blood glucose markedly elevated. Given 500cc NS but upon reassessment , fingerstick glucose still markedly elevated. Patient states that he takes insulin at home. Humalog 4 units ordered. 11/03/16 14:26 Patient was discharged at 12:00 and instructed to follow up with his PMD. Patient given prescription for Percocet since Tramadol at home was not enough to alleviate his pain. Patient also instructed to restart his DM medications and to monitor his blood glucose at home. (Boris Hernandez) 11/03/16 08:43 Patient seen and evaluated with manager medical. On evaluation, patient denies chest pain or shortness fo breath. Reports right leg pain starting in thigh, with no trauma. On my exam he has strong and palpable distal pulses, foot is warm, not cool. Exam NOT consistent with ACUTE arterial blockage. He has full range of motion of knee and ankle and hip. No edema is noted. No warmth or erythema noted in joints. He has prior hx of DVT/PE and CAD. Patient currently taking Eliquis and states he is compliant. Denies any chest pain or shortness of breath. No lower abdominal pain noted on exam. Strong femoral pulses noted. Patient pending ultrasound at this time. Ultrasound preliminary report negative for DVT. He has strong distal pulses. No erythema or edema. No streaking or erythema. PATIENT ALREADY TAKING ELIQUIS. No abdominal pain or pulse deficits. Stressed need for close follow-up. No rash. No urinary symptoms. No hematuria. No incarcerated hernia noted on exam. Patient with follow-up with PMD. Reviewed pain medication with patient as well as risks/side effets. Hyperglycemia but no signs of DKA. IV fluids given, insulin given in ED. Patient did not take insulin this am. Stressed need for monitoring of blood sugars and risks of uncontrolled diabetes reviewed. 11/03/16 12:10 Patient Seen With Resident: In agreement with resident note which contains more details about the patient. Patient was seen and evaluated with resident. Came up with plan and treatment together. 56 year old male presents complaining of right lower extremity pain for the past 2 days. Labs and ultrasound were done. 11/03/16 17:38 (Ximena Salcido) - Lab Interpretations Lab Results: 11/03/16 08:30 11/03/16 08:30 Lab Results 11/03/16 08:30: Sodium 138, Potassium 4.6, Chloride 100, Carbon Dioxide 28, Anion Gap 15, BUN 20, Creatinine 0.9, Est GFR ( Amer) > 60, Est GFR (Non- Af Amer) > 60, Random Glucose 392 H* D, Calcium 9.1, Total Bilirubin 0.4, AST 22 , ALT 37, Alkaline Phosphatase 74, Total Protein 6.6, Albumin 3.8, Globulin 2.7 , Albumin/Globulin Ratio 1.4 11/03/16 08:30: PT 10.9, INR 1.01, APTT 26.4 11/03/16 08:30: WBC 6.8, RBC 4.98, Hgb 14.1, Hct 41.1 L, MCV 82.5, MCH 28.3, MCHC 34.3, RDW 13.2, Plt Count 196, MPV 10.2, Gran % 64.8, Lymph % (Auto) 23.3, [place] % (Auto) 8.7 H, Eos % (Auto) 2.8, Baso % (Auto) 0.4, Gran # 4.41, Lymph # 1.6, [place] # 0.6, Eos # 0.2, Baso # 0.03 - RAD Interpretation Radiology Orders: 11/03/16 08:01 DUPLEX LOWER EXTRM VEIN RIGHT [US] Stat - Medication Orders Current Medication Orders: Discontinued Medications Sodium Chloride (Sodium Chloride 0.9%) 500 mls @ 999 mls/hr IV .Q31M STA Stop: 11/03/16 10:26 Last Admin: 11/03/16 10:05 Dose: 999 mls/hr Insulin Human Regular (Humulin R) 4 units SC STAT STA Stop: 11/03/16 11:27 Last Admin: 11/03/16 11:50 Dose: 4 units Oxycodone/Acetaminophen (Percocet 5/325 Mg Tab) 1 tab PO STAT STA Stop: 11/03/16 11:28 Last Admin: 11/03/16 11:51 Dose: 1 tab <Boris Hernandez - Last Filed: 11/03/16 14:26> - Scribe Statement The provider has reviewed the documentation as recorded by the Scribe <Ximena Salcido - Last Filed: 11/03/16 17:41> - Scribe Statement Tom Raines All medical record entries made by the Scribe were at my direction and personally dictated by me. I have reviewed the chart and agree that the record accurately reflects my personal performance of the history, physical exam, medical decision making, and the department course for this patient. I have also personally directed, reviewed, and agree with the discharge instructions and disposition. (Ximena Salcido) Disposition/Present on Arrival - Present on Arrival Any Indicators Present on Arrival: No History of DVT/PE: Yes History of Uncontrolled Diabetes: No Urinary Catheter: No History of Decub. Ulcer: No History Surgical Site Infection Following: None - Disposition Have Diagnosis and Disposition been Completed?: Yes Disposition Time: 12:00 <Boris Hernandez - Last Filed: 09/17/17 14:26> <Ximena Salcido - Last Filed: 11/03/16 17:41> - Disposition Diagnosis: Leg pain, Hyperglycemia Disposition: HOME/ ROUTINE Condition: STABLE Discharge Instructions (ExitCare): Diabetic Hyperglycemia (ED), Leg Pain (ED) Additional Instructions: Please take the Percocet as prescribed and take it ONLY IF needed for pain. Please follow up with Dr. Aguirre within 1 week. Take your diabetes medications when you return home and monitor your blood sugar numbers as well throughout the day. Return to the emergency room if you experience new or worsening symptoms. Prescriptions: oxyCODONE/Acetaminophen [Percocet 5/325 mg Tab] 1 ea PO Q6 PRN #8 tab PRN Reason: severe pain Referrals: Zulema Aguirre MD [Primary Care Provider] - Follow up with primary Forms: [employer] ([place])
[2016-11-03 08:52] LABS: BASO # 0.03 K/mm3 (0.0-2.0); BASO % 0.4 % (0.0-3.0); EOS # 0.2 (0.0-0.7); EOS % 2.8 % (1.5-5.0); GRAN # 4.41 (1.4-6.5); GRAN % 64.8 % (50.0-68.0); HEMATOCRIT 41.1 % (42.0-52.0); LYMPH # 1.6 (1.2-3.4); LYMPH % 23.3 % (22.0-35.0); MEAN CELL VOLUME 82.5 fl (80.0-105.0); MEAN CORPUSCULAR HEMOGLOBIN 28.3 pg (25.0-35.0); MEAN CORPUSCULAR HGB CONC 34.3 g/dl (31.0-37.0); MEAN PLATELET VOLUME 10.2 fl (7.0-11.0); MONO # 0.6 (0.1-0.6); MONO % 8.7 % (1.0-6.0); RED CELL DISTRIBUTION WIDTH 13.2 % (11.5-14.5); WHITE BLOOD COUNT 6.8 10^3/ul (4.5-11.0)
[2016-11-03 09:03] LABS: INR 1.01 (0.93-1.08); PARTIAL THROMBOPLASTIN TIME 26.4 Seconds (23.7-30.8)
[2016-11-03 09:06] LABS: ALB/GLOB RATIO 1.4 (1.1-1.8); ALKALINE PHOSPHATASE 74 U/L (38-126); ALT/SGPT 37 U/L (7-56); AST/SGOT 22 U/L (17-59); BILIRUBIN,TOTAL 0.4 mg/dL (0.2-1.3); BLOOD UREA NITROGEN 20 mg/dL (7-21); CALCIUM 9.1 mg/dL (8.4-10.5); CARBON DIOXIDE 28 mmol/L (21-33); CHLORIDE 100 mmol/L (98-107); GFR AFRICAN-AMERICAN > 60; POTASSIUM 4.6 mmol/L (3.6-5.0); SODIUM 138 mmol/L (132-148); TOTAL PROTEIN 6.6 g/dL (5.8-8.3)
[2016-11-03 09:42] LABS: GLUCOSE,RANDOM 392 mg/dL (70-110)
[2016-11-03] MEDS ORDERED: Sodium Chloride 0.9% 500 ML IV STA (09:56)
[2016-11-03] MEDS ORDERED: Insulin Regular 1 UNITS/0.01 ML ML SC STA (11:26)
[2016-11-03] MEDS ORDERED: Oxycodone/Acetaminophen 5/325 mg Tab PO STA (11:27)
[2016-11-03 12:18] VITALS: BP 135/91; PULSE 70; O2SAT 98
--- NOTE | 2016-11-03 17:40 | US ---
PROCEDURE: Right lower extremity venous US HISTORY: Leg pain and swelling. Evaluate for DVT. PHYSICIAN(S): Raza Rodriguez M.D. TECHNIQUE: Duplex sonography and color-flow Doppler with graded compression were used to evaluate the deep venous system of the right lower extremity. FINDINGS: The visualized deep venous system of the right lower extremity is sonographically normal and compressible. Normal waveforms and augmentation are seen. There is no sonographic evidence for deep venous thrombosis in the visualized segments of the right lower extremity. IMPRESSION: 1. No sonographic evidence for deep venous thrombosis in the visualized segments of the right lower extremity.
== END 2016-11-03 12:24 | disposition home or self-care (01) ==
LOC: ED 07:12
DX: E11.65 Type 2 diabetes mellitus with hyperglycemia (principal); M79.604 Pain in right leg; E78.5 Hyperlipidemia, unspecified; I25.10 Atherosclerotic heart disease of native coronary artery without angina pectoris; I10 Essential (primary) hypertension
CPT/HCPCS: 80053; 82948; 85025; 85610; 85730; 93971; 96372; 99285; J7040

== ENCOUNTER 2017-03-03 01:06 | Observation (INO) | payer OTHER ==
--- NOTE | 2017-03-03 01:29 | ED PDOC ---
Arrival/HPI - General Time Seen by Provider: 03/03/17 01:14 Historian: Patient - History of Present Illness Narrative History of Present Illness (Text): 03/03/17 01:28 A 56 year old male, whose past medical history includes CAD with multiple stents (2015/2016), hypertension, diabetes mellitus and asthma, was brought in by EMS to the emergency department complaining of onset intermittent chest tightness while at home this evening. Patient also reports vomiting and dizziness. Denies any history of fever or chills. Patient denies any shortness of breath, back pain, leg pain or any other complaints at this time.States his chest tightness currently resolved but still nauseous. Symptom Onset: Sudden Symptom Course: Unchanged Activities at Onset: Rest Context: Home Past Medical History - Provider Review Nursing Documentation Reviewed: Yes - Infectious Disease Hx of Infectious Diseases: None - Tetanus Immunization Tetanus Immunization: Unknown - Cardiac Hx Cardiac Disorders: Yes Hx Hypertension: Yes - Pulmonary Hx Respiratory Disorders: Yes (PULMONARY EMBOLISM 10-15) Hx Asthma: Yes Hx Bronchitis: Yes Hx Pneumonia: Yes - Neurological Hx Neurological Disorder: No - HEENT Hx HEENT Disorder: No - Renal Hx Renal Disorder: No - Endocrine/Metabolic Hx Endocrine Disorders: Yes Hx Diabetes Mellitus Type 2: Yes - Hematological/Oncological Hx Blood Disorders: No - Integumentary Hx Dermatological Disorder: No - Musculoskeletal/Rheumatological Hx Musculoskeletal Disorders: No - Gastrointestinal Hx Gastrointestinal Disorders: Yes Hx Diverticulitis: No Hx Gastroesophageal Reflux: Yes - Genitourinary/Gynecological Hx Genitourinary Disorders: No - Psychiatric Hx Substance Use: No - Surgical History Hx Cardiac Catheterization: Yes (x3) Other/Comment: 3 stents - Anesthesia Hx Anesthesia: Yes Hx Anesthesia Reactions: No Hx Malignant Hyperthermia: No - Suicidal Assessment Feels Threatened In Home Enviroment: No Family/Social History - Physician Review Nursing Documentation Reviewed: Yes Family/Social History: No Known Family HX Smoking Status: Former Smoker Hx Alcohol Use: No Hx Substance Use: No Hx Substance Use Treatment: No Allergies/Home Meds Allergies/Adverse Reactions: Allergies peanut Allergy (Verified 03/03/17 01:34) RASH Penicillins Adverse Reaction (Verified 03/03/17 01:34) RASH Home Medications: Home Meds Medication Instructions Recorded Confirmed Apixaban [Eliquis] 1 tab PO BID 04/08/16 11/03/16 MetFORMIN [glucoPHAGE] 1 tab PO BID 04/08/16 11/03/16 GlipiZIDE [Glucotrol] 10 mg PO DAILY 11/03/16 11/03/16 Review of Systems - Physician Review All systems were reviewed & negative as marked: Yes - Review of Systems Constitutional: absent: Fevers, Other (chills) Respiratory: absent: SOB Cardiovascular: Chest Pain (chest tightness) Gastrointestinal: Vomiting Musculoskeletal: absent: Back Pain, Other (leg pain) Neurological: Dizziness Physical Exam Vital Signs Reviewed: Yes Vital Signs Temp Pulse Resp BP Pulse Ox 03/03/17 05:00 98.7 F 76 17 114/85 99 03/03/17 03:06 97.8 F 71 16 125/83 96 03/03/17 01:10 97.5 F L 72 23 142/83 99 03/03/17 01:06 97.6 F 72 18 114/78 95 Appearance: Positive for: Well-Appearing, Non-Toxic, Comfortable Pain Distress: None Mental Status: Positive for: Alert and Oriented X 3 - Systems Exam Head: Present: Atraumatic, Normocephalic Pupils: Present: PERRL Extroacular Muscles: Present: EOMI Conjunctiva: Present: Normal Mouth: Present: Moist Mucous Membranes Neck: Present: Normal Range of Motion Respiratory/Chest: Present: Clear to Auscultation, Good Air Exchange. No: Respiratory Distress, Accessory Muscle Use Cardiovascular: Present: Regular Rate and Rhythm, Normal S1, S2. No: Murmurs Abdomen: Present: Normal Bowel Sounds. No: Tenderness, Distention, Peritoneal Signs Back: Present: Normal Inspection Upper Extremity: Present: Normal Inspection. No: Cyanosis, Edema Lower Extremity: Present: Normal Inspection. No: Edema Neurological: Present: GCS=15, CN II-XII Intact, Speech Normal Skin: Present: Warm, Dry, Normal Color. No: Rashes Psychiatric: Present: Alert, Oriented x 3, Normal Insight, Normal Concentration Medical Decision Making ED Course and Treatment: 03/03/17 01:27 Impression: A 56 year old male with chest tightness, vomiting and dizziness.Differential dx. coronary insufficiency/cad vs.gastritis/gastroparesis vs. cholelithiasis Plan: -- EKG -- chest xray -- labs -- US gallbladder and pancreas -- Pepcid, Zofran, IV fluids -- Reassess and disposition Prior Visits: Notes and results from previous visits were reviewed. Patient was last seen in the emergency department on 11/03/16 for evaluation of right lower extremity pain. Progress Notes: 03/03/17 02:58 Chest xray: Cardiomegaly, no acute process, as read by me. 03/03/17 03:04 EKG: Ordered, reviewed, and independently interpreted the EKG. Rate : 73 BPM Rhythm : NSR Interpretation : incomplete right bundle branch block, anterior infarct, nonspecific ST/T changes US Abdomen Limited, Right Upper Quadrant FINDINGS: Artifacts: Limited due to bowel gas shadowing. Limited due to shadowing from the ribs. Liver: The liver measures 20.3 cm. Limited evaluation due to shadowing. Echogenic fatty liver. There is hepatic pedal flow in the portal vein. Gallbladder: Limited evaluation of gallbladder due to the shadowing. The gallbladder wall measures 2 mm.There was no right upper quadrant tenderness during the sonographic examination. Correlation with patient's pain medication status is recommended. Common bile duct: The common bile duct measures 6 mm which is normal for patient 's age. Pancreas: The pancreas is not well-seen. Right kidney: The right kidney measures 11.2 x 5.2 x 5.6 cm. No stones. No hydronephrosis. Aorta: The proximal aorta is suboptimally evaluated and roughly measures 1.9 cm. Limited evaluation of the abdominal aorta. IMPRESSION: No acute findings. Dictated and Authenticated by: Juan Antonio Fox MD 03/03/2017 3:21 AM Eastern Time ([place] & [place]) 03/03/17 3:50 Case was d/w medical records secretary and .Dr. Gaston requested I speak with attending energy operations vice president to accept.I d/w the attending energy operations vice president who requested pt. be admitted to the hospitalist service.Pt. accepted to the hospitalist service. - Lab Interpretations Lab Results: 03/03/17 01:30 03/03/17 01:30 Lab Results 03/03/17 01:30: WBC 14.4 H D, RBC 5.70, Hgb 15.8, Hct 46.4, MCV 81.4, MCH 27.7, MCHC 34.1, RDW 13.7, Plt Count 270, MPV 10.2 03/03/17 01:30: Sodium 145, Potassium 3.8, Chloride 107, Carbon Dioxide 22, Anion Gap 19, BUN 19, Creatinine 0.8, Est GFR ( Amer) > 60, Est GFR (Non- Af Amer) > 60, Random Glucose 209 H, Calcium 10.0, Total Bilirubin 0.4, AST 27, ALT 47, Alkaline Phosphatase 64, Lactate Dehydrogenase 461, Total Creatine Kinase 84, Troponin I < 0.01, Total Protein 7.5, Albumin 4.2, Globulin 3.3, Albumin/Globulin Ratio 1.3 03/03/17 01:30: PT 10.8, INR 0.95, APTT 26.1 03/03/17 01:23: POC Glucose (mg/dL) 234 H I have reviewed the lab results: Yes - RAD Interpretation Radiology Orders: 03/03/17 01:21 CHEST PORTABLE [RAD] Stat 03/03/17 02:04 GALLBLADDER & PANCREAS [US] Stat - EKG Interpretation Interpreted by ED Physician: Yes Type: 12 lead EKG - Medication Orders Current Medication Orders: Apixaban (Eliquis) 5 mg PO BID KIA PRN Reason: Protocol Aspirin (Aspirin Chewable) 81 mg PO DAILY KIA Clopidogrel Bisulfate (Plavix) 75 mg PO DAILY KIA Sodium Chloride (Sodium Chloride 0.9%) 1,000 mls @ 100 mls/hr IV .Q10H KIA Last Admin: 03/03/17 01:34 Dose: 100 mls/hr eMAR Start Stop Document 03/03/17 01:34 AB (Rec: 03/03/17 01:34 AB [id number]) Intravenous Solution Start Date 03/03/17 Start Time 01:34 Sodium Chloride (Sodium Chloride 0.9%) 1,000 mls @ 100 mls/hr IV .Q10H KIA Last Admin: 03/03/17 04:34 Dose: 100 mls/hr eMAR Start Stop Document 03/03/17 04:34 AB (Rec: 03/03/17 04:34 AB [id number]) Intravenous Solution Start Date 03/03/17 Start Time 04:34 Ondansetron HCl (Zofran Inj) 4 mg IVP Q6H PRN PRN Reason: Nausea/Vomiting Discontinued Medications Aspirin (Aspirin Chewable) 81 mg PO STAT STA Stop: 03/03/17 04:15 Last Admin: 03/03/17 04:34 Dose: 81 mg Famotidine (Pepcid) 20 mg IVP STAT STA Stop: 03/03/17 01:24 Last Admin: 03/03/17 01:34 Dose: 20 mg IVP Administration Document 03/03/17 01:34 AB (Rec: 03/03/17 01:34 AB [id number]) Charges for Administration # of IVP Administrations 1 Ondansetron HCl (Zofran Inj) 4 mg IVP ONCE ONE Stop: 03/03/17 01:24 Last Admin: 03/03/17 01:34 Dose: 4 mg IVP Administration Document 03/03/17 01:34 AB (Rec: 03/03/17 01:34 AB [id number]) Charges for Administration # of IVP Administrations 1 - Scribe Statement The provider has reviewed the documentation as recorded by the Dae Gilliland Provider Scribe Attestation: All medical record entries made by the Scribe were at my direction and personally dictated by me. I have reviewed the chart and agree that the record accurately reflects my personal performance of the history, physical exam, medical decision making, and the department course for this patient. I have also personally directed, reviewed, and agree with the discharge instructions and disposition. Disposition/Present on Arrival - Present on Arrival Any Indicators Present on Arrival: No History of DVT/PE: Yes History of Uncontrolled Diabetes: No Urinary Catheter: No History of Decub. Ulcer: No History Surgical Site Infection Following: CABG - Mediastinitis, None - Disposition Have Diagnosis and Disposition been Completed?: Yes Diagnosis: Chest pain Disposition: HOSPITALIZED Disposition Time: 03:49 Patient Plan: Observation Patient Problems: Current Active Problems Problem Status Onset Chest pain Acute Condition: STABLE
[2017-03-03] MEDS ORDERED: Sodium Chloride 0.9% 1,000 ML IV SCH ×2 (01:30→04:30)
[2017-03-03 01:44] LABS: HEMOGLOBIN 15.8 g/dL (14.0-18.0); MEAN CELL VOLUME 81.4 fl (80.0-105.0); MEAN CORPUSCULAR HEMOGLOBIN 27.7 pg (25.0-35.0); MEAN CORPUSCULAR HGB CONC 34.1 g/dl (31.0-37.0); MEAN PLATELET VOLUME 10.2 fl (7.0-11.0); RBC 5.7 10^6/uL (3.5-6.1); RED CELL DISTRIBUTION WIDTH 13.7 % (11.5-14.5); WHITE BLOOD COUNT 14.4 10^3/ul (4.5-11.0)
[2017-03-03 01:50] LABS: ALB/GLOB RATIO 1.3 (1.1-1.8); ALBUMIN 4.2 g/dL (3.0-4.8); ALT/SGPT 47 U/L (7-56); AST/SGOT 27 U/L (17-59); BLOOD UREA NITROGEN 19 mg/dL (7-21); GFR AFRICAN-AMERICAN > 60; GFR NON-AFRICAN AMERICAN > 60
[2017-03-03 01:52] LABS: INR 0.95 (0.93-1.08); PARTIAL THROMBOPLASTIN TIME 26.1 Seconds (25.1-36.5); PROTHROMBIN TIME 10.8 SECONDS (9.4-12.5)
[2017-03-03 02:01] LABS: TROPONIN I < 0.01 ng/mL
--- NOTE | 2017-03-03 03:21 | US ---
EXAM: US Abdomen Limited, Right Upper Quadrant CLINICAL HISTORY: 56 years old, male; Pain; Abdominal pain; Generalized; Additional info: Chest pain/vomiting TECHNIQUE: Real-time ultrasound of the right upper quadrant with image documentation. COMPARISON: No relevant prior studies available. FINDINGS: Artifacts: Limited due to bowel gas shadowing. Limited due to shadowing from the ribs. Liver: The liver measures 20.3 cm. Limited evaluation due to shadowing. Echogenic fatty liver. There is hepatic pedal flow in the portal vein. Gallbladder: Limited evaluation of gallbladder due to the shadowing. The gallbladder wall measures 2 mm.There was no right upper quadrant tenderness during the sonographic examination. Correlation with patient's pain medication status is recommended. Common bile duct: The common bile duct measures 6 mm which is normal for patient's age. Pancreas: The pancreas is not well-seen. Right kidney: The right kidney measures 11.2 x 5.2 x 5.6 cm. No stones. No hydronephrosis. Aorta: The proximal aorta is suboptimally evaluated and roughly measures 1.9 cm. Limited evaluation of the abdominal aorta. IMPRESSION: No acute findings.
--- NOTE | 2017-03-03 04:37 | CP.PCM.HP ---
History of Present Illness - History of Present Illness History of Present Illness: CC: Vomiting x 3 episodes HPI: 56 y/o male with a PMHx DM, Asthma, CAD s/p PCI with 3 stents (2 placed in 08/2015 and 1 placed in 03/2016), h/o PE (11/2014) presents to the ED with the complaint of waking up from his sleep and vomiting earlier tonight. Patient reports that he woke up from his sleep, felt nauseated and began vomiting. He relays that his vomitus is nonbilious/nonbloody. He also reported chest tightness during his episodes of vomiting. He denied any complaints of fever, chills, headache, shortness of breath, diarrhea, palpitations, diaphoresis, neck /arm or jaw pain. He did report some light headedness after vomiting. He sleeps at the [facility] and called an ambulance because he was concerned about his chest discomfort. Patient states he had a stress test performed last year which was negative. He currently states his chest pain is a 0/10, is no longer nauseated and is resting comfortably. In the ED he was treated with Zofran and pepcid IV as well as IVF hydration. PMHx: as listed above Allergies: PCN/peanuts Fam Hx: reviewed and noncontributory Soc Hx: denies current tobacco/etoh/illicit drug use Meds: Lantus 40 units SQ AM Metformin Januvia Glipizide Jardiance ASA Plavix Eliquis 5mg bid Present on Admission - Present on Admission Any Indicators Present on Admission: Yes History of DVT/PE: Yes Review of Systems - Review of Systems Review of Systems: As per HPI otherwise negative for a 10 point ROS Past Patient History - Infectious Disease Hx of Infectious Diseases: None - Tetanus Immunizations Tetanus Immunization: Unknown - Past Social History Smoking Status: Former Smoker Alcohol: None Drugs: Denies Home Situation {Lives}: Other (lives at the [facility]) - CARDIAC Hx Cardiac Disorders: Yes Hx Hypertension: Yes - PULMONARY Hx Respiratory Disorders: Yes (PULMONARY EMBOLISM 10-15) Hx Asthma: Yes Hx Bronchitis: Yes Hx Pneumonia: Yes - NEUROLOGICAL Hx Neurological Disorder: No - HEENT Hx HEENT Problems: No - RENAL Hx Chronic Kidney Disease: No - ENDOCRINE/METABOLIC Hx Endocrine Disorders: Yes Hx Diabetes Mellitus Type 2: Yes - HEMATOLOGICAL/ONCOLOGICAL Hx Blood Disorders: No - INTEGUMENTARY Hx Dermatological Problems: No - MUSCULOSKELETAL/RHEUMATOLOGICAL Hx Musculoskeletal Disorders: No - GASTROINTESTINAL Hx Gastrointestinal Disorders: Yes Hx Diverticulitis: No Hx Gastroesophageal Reflux: Yes - GENITOURINARY/GYNECOLOGICAL Hx Genitourinary Disorders: No - PSYCHIATRIC Hx Substance Use: No - SURGICAL HISTORY Hx Cardiac Catheterization: Yes (x3) Other/Comment: 3 stents - ANESTHESIA Hx Anesthesia: Yes Hx Anesthesia Reactions: No Hx Malignant Hyperthermia: No Meds Allergies/Adverse Reactions: Allergies Allergy/AdvReac Type Severity Reaction Status Date / Time peanut Allergy RASH Verified 03/03/17 01:34 Penicillins AdvReac RASH Verified 03/03/17 01:34 Physical Exam - Constitutional Appears: Well, Non-toxic, No Acute Distress - Head Exam Head Exam: ATRAUMATIC, NORMOCEPHALIC - Eye Exam Eye Exam: EOMI, Normal appearance - ENT Exam ENT Exam: Mucous Membranes Dry - Neck Exam Neck exam: Positive for: Full Rom - Respiratory Exam Respiratory Exam: Clear to Auscultation Bilateral, NORMAL BREATHING PATTERN. absent: Rales, Rhonchi, Wheezes, Respiratory Distress - Cardiovascular Exam Cardiovascular Exam: REGULAR RHYTHM, +S1, +S2. absent: Systolic Murmur - GI/Abdominal Exam GI & Abdominal Exam: Normal Bowel Sounds, Soft. absent: Guarding, Rebound, Tenderness - Rectal Exam Rectal Exam: Deferred - Extremities Exam Extremities exam: Positive for: normal inspection. Negative for: calf tenderness - Neurological Exam Neurological exam: Alert, Oriented x3 - Psychiatric Exam Psychiatric exam: Normal Affect, Normal Mood - Skin Skin Exam: Dry, Intact, Normal Color, Warm Results - Vital Signs Recent Vital Signs: Last Vital Signs Temp 97.8 F 03/03/17 03:06 Pulse 71 03/03/17 03:06 Resp 16 03/03/17 03:06 BP 125/83 03/03/17 03:06 Pulse Ox 96 03/03/17 03:06 - Labs Result Diagrams: 03/03/17 01:30 03/03/17 01:30 - EKG Data EKG Interpreted by: Myself EKG shows normal: Sinus rhythm Rate: Normal (incomplete RBBB (present on old EKG); no ST Elevations or depressions noted) - EKG Data When Compared to Previous EKG: No Significant Change Assessment & Plan - Assessment and Plan (Free Text) Assessment: 56 y/o male with a PMHx as listed above presented to the ED with 3-4 episodes of vomiting. Patient was treated with anti-emetics which alleviated his discomfort. He will be placed on observation for his chest discomfort to rule out ACS. Plan: chest tightness - rule out ACS; obtain an additional 2 sets of cardiac enzymes; continue ASA/plavix; check FLP and consider statin if LDL > 70 (previous records show LDL of 55). Unlikely cardiac in nature as the patient has had complete resolution of his symptoms with IV Zofran. In the event that the patient does mount a cardiac enzyme, I will defer to the daytime hospitalist team to obtain a cardiac consultation with Dr. Kong. Leukocytosis - likely reactive; patient does not have any systemic complaints to suggest an infection; U/S of the abdomen was done and is normal Vomiting - resolved; possible gastroenteritis vs gastroparesis; will place the patient on IVF hydration, start a diabetic diet for breakfast h/o PE - diagnosed with PE in 2014, as per patient, no other history of VTE, unclear why he's still on eliqiuis, however will continue his home dose of 5mg po bid DM - c/w Lantus 40 units SQ HS, hold oral agents and place him on an ISS Asthma - no acute issues; duoneb Q4H prn GI/DVT ppx - protonix po; patient is already on eliquis
[2017-03-03 07:51] LABS: TROPONIN I < 0.01 ng/mL
[2017-03-03 07:54] LABS: HDL CHOLESTEROL 34 mg/dL (29-60)
[2017-03-03 08:05] LABS: LDL CHOLESTEROL 113 mg/dL (0-129)
--- NOTE | 2017-03-03 09:09 | RAD ---
HISTORY: Chest pain COMPARISON: 09/10/2016. FINDINGS: LUNGS: The lungs are clear. PLEURA: No significant pleural effusion identified, no pneumothorax apparent. CARDIOVASCULAR: Normal. OSSEOUS STRUCTURES: No significant abnormalities. VISUALIZED UPPER ABDOMEN: Normal. OTHER FINDINGS: None. IMPRESSION: No active pulmonary disease.
--- NOTE | 2017-03-03 10:20 | CARD ---
APPROVED REPORT EKG Measurement Heart [id number] <Conclusion> Normal sinus rhythm Incomplete right bundle branch block NSSTW changes, new
[2017-03-03] MEDS ORDERED: HEPARIN SODIUM/NS 2,000 ML IV ONE (10:40)
[2017-03-03] MEDS ORDERED: Lidocaine 2% Inj (20ml) ONE (10:40)
[2017-03-03] MEDS ORDERED: Midazolam 2 MG/2 ML VIAL ONE ×2 (10:41→12:21)
[2017-03-03] MEDS ORDERED: Iodixanol 320 MG/ML 200 ML BOTTLE IV ONE (10:41)
[2017-03-03] MEDS ORDERED: Nitroglycerin 50mg in D5W 50 MG/250 ML BOTTLE IV ONE (10:41)
[2017-03-03] MEDS ORDERED: Bacitracin 500 Units/gm Oint Foilpak UD TOP ONE (12:59)
[2017-03-03] MEDS ORDERED: Potassium Chloride 20 mEq ER Tab PO STA (13:07)
[2017-03-03 13:38] LABS: TROPONIN I < 0.01 ng/mL
[2017-03-03] MEDS ORDERED: Insulin Reg-LOW-Coverage SC SCH (16:30)
[2017-03-03] MEDS ORDERED: Bacitracin 500 Units/gm Oint Foilpak UD ONE (16:55)
--- NOTE | 2017-03-03 17:59 | CARD ---
APPROVED REPORT Procedure(s) performed: Left Heart Catheterization HISTORY vascular disease, diabetes mellitus with insulin treatment , chronic lung disease, previous diagnostic cath, tobacco history() : The patient is a former smoker , previous PCI (The PCI date was 04/08/2016), Hx of PTCA of LAD with two stents in 08/2015 and then stent in LAD 03/2016 and POBA of D1 admitted with ACS?unstable angina. INDICATION The indication(s) include : unstable angina . CASE TECHNIQUE The patient was brought urgently to the Cardiac Catheterization Laboratory in a fasting state and was prepped and draped in a sterile manner. The left wrist was infiltrated with 2% Lidocaine subcutaneous anesthesia. A 6FR GLIDESHEATH ACCESS KIT sheath was inserted into the left radial artery without difficulty. Coronary angiography was performed using coronary diagnostic catheters. The left coronary system was accessed and visualized with a Diagnostic ,5 Fr JL 4 catheter. The right coronary system was accessed and visualized with a Diagnostic ,5 Fr JR 4 catheter. The left ventricle was accessed and visualized with a 5 Fr Pigtail 145 (Angled) catheter. Left ventricular/Aortic Valve gradient assessed on pullback. Left ventriculogram was performed in CEJA projection. Closure device was deployed with a Fr TR Band (Large) without any complications. The patient tolerated the procedure well and there were no complications associated with the procedure. Vessel Analysis The patient's coronary anatomy is right dominant. The left main coronary artery is a large size vessel with diffuse calcification noted throughout this vessel and without significant stenosis. The left main bifurcates to the left anterior descending and circumflex. The left anterior descending artery is a medium size vessel with diffuse calcification noted throughout this vessel and without significant stenosis. patent stents in LAD The first diagonal branch is a small size vessel with diffuse calcification noted throughout this vessel and without significant stenosis. patent POBA site The circumflex artery is a medium size vessel with diffuse calcification noted throughout this vessel and without significant stenosis. There is a 55% stenosis in the distal segment. The first obtuse marginal branch is a medium size vessel with diffuse calcification noted throughout this vessel and without significant stenosis. The second obtuse marginal branch is a medium size vessel with diffuse calcification noted throughout this vessel and without significant stenosis. The right coronary artery is a large size vessel with diffuse calcification noted throughout this vessel and without significant stenosis. There is a 20-30% stenosis in the mid segment. The right posterior descending artery is a medium size vessel with diffuse calcification noted throughout this vessel and without significant stenosis. The right posterolateral branch is a small size vessel with diffuse calcification noted throughout this vessel and without significant stenosis. Left Ventricle The left ventricle is normal in size with normal contractility. There was no cardiomyopathy. The left ventricular ejection fraction is estimated to be 55-60%. The left ventricular end diastolic pressure is 16 mmHg. There was no gradient across the aortic valve upon pullback. Conclusion Patent stents in LAD patent POBA site in D1. Distal Circumflex 55% stenosis, non Flow limiting. Preserved LV Fx. EF-55-60%, EDP-16 mmof hg. Recommendations Aggressive Medical TherapyCardiac Risk Reduction Program Weight Loss Reduction Program Continue ASA/ Plavix for extended period of time. Pt was taking Eliquis for DVT/PE stopped himself for more than a month. Complance with meds. CC; Alex/ Carla,Zulema/ Bryson
--- NOTE | 2017-03-03 18:22 | PN ---
DATE: 03/03/2017 REASON FOR CONSULTATION AND FOLLOWUP: Acute coronary syndrome, unstable angina. BRIEF CLINICAL HISTORY: This is a 56-year-old male with multiple stents in 08/2015, was stented again in 03/2016, one stent plain balloon angioplasty of diagonal 1, admitted with acute coronary syndrome and unstable angina. The patient underwent cardiac catheterization that revealed patent stent in diagonal 1 with 55% stenosis in the distal circumflex. Medical treatment recommended. Preserved LV function. RECOMMENDATIONS: The patient to be ambulating after 3:30, possible discharge home after 4:30, reduction of body weight and compliance with medication. I will discuss with Dr. Du. Thank you Dr. Du for providing us the opportunity in taking care of the patient Hua Schmidt. Bryant Kong MD
[2017-03-03 18:32] VITALS: BMI 27.6
--- NOTE | 2017-03-03 22:28 | CON ---
DATE: CONSULT SERVICE: Cardiology. CONSULTING PHYSICIAN: Bryant Kong MD REASON FOR CONSULTATION AND FOLLOWUP: Unstable angina, chest pain, vomiting, nausea, things spinning, and woke up with chest pain. BRIEF CLINICAL HISTORY: This is a 56-year-old male with past medical history significant for coronary artery disease, status post stent placed twice in 06/2014 and 03/2015; history of PE and DVT on 11/2014, who was in his usual state of health, who woke up with chest pain, lives in [facility] and things started spinning around through multiple times, called the ambulance and brought here. The patient does not feel any chest pain now, but when he woke up, he had chest pain and tightness in the chest and just started feeling things spinning around and with nausea and vomiting. PAST MEDICAL HISTORY: Significant for coronary artery disease, status post 2 stents in LAD in 09/07/2015 and then the patient had another stent in 04/08/2016 where the patient had stent in mid LAD with drug-eluting stent and plain balloon angioplasty of diagonal one on 04/08/2016; diabetes; hypertension; hyperlipidemia; history of PE and DVT. PREVIOUS CARDIAC WORKUP: As follows. The patient most recently had a stress test on 03/12/2016 that was probably abnormal myocardial perfusion study, anterolateral reversible ischemia. Following that, the patient had cardiac catheterization and stent in LAD and plain balloon angioplasty of diagonal one, dated 04/08/2016. Prior to that, the patient had two stents in LAD in 09/06/2015. History of diabetes, hypertension, and hyperlipidemia. History of echocardiography on 02/29/2016 does show ejection fraction of 74%, diastolic dysfunction, mild mitral regurgitation and tricuspid regurgitation. SOCIAL HISTORY: Denies smoking. Denies any history of alcohol abuse. CURRENT MEDICATIONS: The patient is taking oxycodone, Januvia, Glucophage, Glucotrol, Plavix, and Eliquis. ALLERGIES: ALLERGIC TO PEANUTS AND ALLERGIC TO PENICILLIN. REVIEW OF SYSTEMS: As per HPI. PHYSICAL EXAMINATION: As follows, VITAL SIGNS: Temperature afebrile, heart rate 80, and blood pressure 130/80. HEENT: PERRLA. Extraocular muscles are intact. NECK: Supple. No carotid bruits or thyromegaly. CHEST: Clear to auscultation. HEART: S1 and S2, regular. ABDOMEN: Soft. EXTREMITIES: Clubbing and cyanosis negative. LABORATORY DATA: Blood workup as follows; WBC 14.1, hemoglobin 15.8, hematocrit 46.4, and platelet count 270. Chemistry shows sodium 145, potassium 3.8, chloride 106, carbon dioxide 22, anion gap of 19, BUN 19, creatinine 0.8, and troponin 0.01. EKG shows normal sinus rhythm with no acute ST-T changes. IMPRESSION: Unstable angina, diabetes, hyperlipidemia, history of multiple stents in 04/08/2016, mid left anterior descending and plain balloon angioplasty of diagonal one, history of prior two stenting of LAD in 08/2015, diabetes, hypertension, hyperlipidemia, history of deep venous thrombosis, pulmonary embolism in the past. RECOMMENDATIONS: We will keep n.p.o., give Plavix. Risks, benefits, and alternatives were discussed with the patient, the patient agreed, and we will proceed for cardiac catheterization. We will hold Eliquis today, last dose of Eliquis was yesterday, we will do the left radial because of unstable angina. Further recommendation after the cardiac catheterization. We will follow with you. Thank you for providing us the opportunity in taking care of the patient, Brayan Sequeira. Bryant Kong MD
[2017-03-04 02:51] VITALS: O2SAT 98
[2017-03-04 06:40] LABS: BASO # 0.04 K/mm3 (0.0-2.0); BASO % 0.5 % (0.0-3.0); EOS # 0.1 (0.0-0.7); EOS % 1.1 % (1.5-5.0); GRAN # 5.58 (1.4-6.5); GRAN % 66.6 % (50.0-68.0); HEMOGLOBIN 15.3 g/dL (14.0-18.0); LYMPH # 1.8 (1.2-3.4); MEAN CELL VOLUME 83.3 fl (80.0-105.0); MEAN CORPUSCULAR HEMOGLOBIN 27.8 pg (25.0-35.0); MEAN CORPUSCULAR HGB CONC 33.4 g/dl (31.0-37.0); MEAN PLATELET VOLUME 10.5 fl (7.0-11.0); MONO # 0.8 (0.1-0.6); MONO % 9.8 % (1.0-6.0); RBC 5.5 10^6/uL (3.5-6.1); RED CELL DISTRIBUTION WIDTH 13.1 % (11.5-14.5); WHITE BLOOD COUNT 8.4 10^3/ul (4.5-11.0)
[2017-03-04 07:03] VITALS: BP 119/72; RESP 19; TEMP 98.2
[2017-03-04 07:06] LABS: ALB/GLOB RATIO 1.2 (1.1-1.8); ALT/SGPT 41 U/L (7-56); AST/SGOT 29 U/L (17-59); BLOOD UREA NITROGEN 16 mg/dL (7-21); CALCIUM 9.5 mg/dL (8.4-10.5); GFR AFRICAN-AMERICAN > 60; GFR NON-AFRICAN AMERICAN > 60
--- NOTE | 2017-03-04 08:27 | CT ---
PROCEDURE: CT HEAD WITHOUT CONTRAST. HISTORY: dizzy COMPARISON: 08/14/2016 TECHNIQUE: Axial computed tomography images were obtained through the head/brain without intravenous contrast. Radiation dose: Total exam DLP = 873 mGy-cm. This CT exam was performed using one or more of the following dose reduction techniques: Automated exposure control, adjustment of the mA and/or kV according to patient size, and/or use of iterative reconstruction technique. FINDINGS: HEMORRHAGE: No intracranial hemorrhage. BRAIN: No mass effect or edema. No atrophy or chronic microvascular ischemic changes. VENTRICLES: Unremarkable. No hydrocephalus. CALVARIUM: Unremarkable. PARANASAL SINUSES: Unremarkable as visualized. No significant inflammatory changes. MASTOID AIR CELLS: Unremarkable as visualized. No inflammatory changes. OTHER FINDINGS: None. IMPRESSION: Normal CT of the Head.
[2017-03-04 11:07] VITALS: PULSE 69
--- NOTE | 2017-03-04 11:36 | PN ---
DATE: 03/04/2017 REASON FOR CONSULTATION: Followup acute coronary syndrome, unstable angina, status post cardiac catheterization, complaint of dizziness. SUBJECTIVE: The patient denies any chest pain, shortness of breath, or any palpitation. Awaiting to go for CAT scan, seen in the CAT scan department. OBJECTIVE: GENERAL: Not in apparent distress. VITAL SIGNS: As follows; temperature afebrile, heart rate 70, and blood pressure 119/72. HEENT: PERRLA. Extraocular muscles intact. NECK: Supple. No carotid bruit or thyromegaly. CHEST: Clear to auscultation. HEART: S1 and S2 regular. ABDOMEN: Soft. EXTREMITIES: Clubbing and cyanosis negative. LABORATORY DATA: Blood workup as follows; WBC 8.5, hemoglobin 15.3, hematocrit 45.8, and platelet count 212. Chemistry shows sodium 142, potassium 4.2, chloride 105, carbon dioxide 26, anion gap of 16, BUN 16, creatinine 0.8. IMPRESSION: Complaining of dizziness, unstable angina, status post cardiac catheterization, patent percutaneous transluminal coronary angioplasty stent in left anterior descending and of diagonal one, [id number] disease in distal circumflex, hypertension, hyperlipidemia, noncompliance of medication, deep venous thrombosis, pulmonary embolism, was on Eliquis. RECOMMENDATIONS: Continue Plavix. Continue Eliquis. Going for CAT scan for evaluation for dizziness. Once the patient is stable from Neurology point, the patient can be discharged home. Awaiting for the CAT scan to be read officially. We will resume back Eliquis 5 mg p.o. b.i.d. and mentioned to the patient. The patient stopped taking Eliquis for 1 month. If the patient is taking Eliquis, we will take Eliquis and Plavix, but if the patient not taking Eliquis, then we will continue aspirin and Plavix. Discussed with the patient. Discussed with Dr. Du. Thank you Dr. Du for providing us the opportunity in taking care of the patient, Brayan Sequeira. Start Eliquis today afternoon. Left radial pulse 2+. Bryant Kong MD
--- NOTE | 2017-03-04 12:09 | CP.PCM.DIS ---
<Mono Cadet - Last Filed: 03/04/17 12:47> Provider - Provider Date of Admission: 03/03/17 03:49 Attending physician: Blayne Du MD Primary care physician: Zulema Aguirre MD Consults: Cardio - Dr. Kong Time Spent in preparation of Discharge (in minutes): 45 Hospital Course - Lab Results Lab Results: Most Recent Lab Values WBC 8.4 10^3/ul (4.5-11.0) D 03/04/17 05:30 RBC 5.50 10^6/uL (3.5-6.1) 03/04/17 05:30 Hgb 15.3 g/dL (14.0-18.0) 03/04/17 05:30 Hct 45.8 % (42.0-52.0) 03/04/17 05:30 MCV 83.3 fl (80.0-105.0) 03/04/17 05:30 MCH 27.8 pg (25.0-35.0) 03/04/17 05:30 MCHC 33.4 g/dl (31.0-37.0) 03/04/17 05:30 RDW 13.1 % (11.5-14.5) 03/04/17 05:30 Plt Count 212 10^3/uL (120.0-450.0) 03/04/17 05:30 MPV 10.5 fl (7.0-11.0) 03/04/17 05:30 Gran % 66.6 % (50.0-68.0) 03/04/17 05:30 Lymph % (Auto) 22.0 % (22.0-35.0) 03/04/17 05:30 Meigs % (Auto) 9.8 % (1.0-6.0) H 03/04/17 05:30 Eos % (Auto) 1.1 % (1.5-5.0) L 03/04/17 05:30 Baso % (Auto) 0.5 % (0.0-3.0) 03/04/17 05:30 Gran # 5.58 (1.4-6.5) 03/04/17 05:30 Lymph # 1.8 (1.2-3.4) 03/04/17 05:30 Meigs # 0.8 (0.1-0.6) H 03/04/17 05:30 Eos # 0.1 (0.0-0.7) 03/04/17 05:30 Baso # 0.04 K/mm3 (0.0-2.0) 03/04/17 05:30 PT 10.8 SECONDS (9.4-12.5) 03/03/17 01:30 INR 0.95 (0.93-1.08) 03/03/17 01:30 APTT 26.1 Seconds (25.1-36.5) 03/03/17 01:30 Sodium 142 mmol/L (132-148) 03/04/17 05:30 Potassium 4.2 mmol/L (3.6-5.0) 03/04/17 05:30 Chloride 105 mmol/L (98-107) 03/04/17 05:30 Carbon Dioxide 26 mmol/L (21-33) 03/04/17 05:30 Anion Gap 16 (10-20) 03/04/17 05:30 BUN 16 mg/dL (7-21) 03/04/17 05:30 Creatinine 0.8 mg/dl (0.8-1.5) 03/04/17 05:30 Est GFR ( Amer) > 60 03/04/17 05:30 Est GFR (Non-Af Amer) > 60 03/04/17 05:30 POC Glucose (mg/dL) 196 mg/dL (65-110) H 03/04/17 11:13 Random Glucose 137 mg/dL (70-110) H 03/04/17 05:30 Hemoglobin A1c 8.5 % (4.2-6.5) H 03/03/17 01:30 Calcium 9.5 mg/dL (8.4-10.5) 03/04/17 05:30 Total Bilirubin 0.9 mg/dL (0.2-1.3) 03/04/17 05:30 AST 29 U/L (17-59) 03/04/17 05:30 ALT 41 U/L (7-56) 03/04/17 05:30 Alkaline Phosphatase 61 U/L (38-126) 03/04/17 05:30 Lactate Dehydrogenase 386 U/L (333-699) 03/03/17 13:00 Total Creatine Kinase 80 U/L (35-230) 03/03/17 13:00 Troponin I < 0.01 ng/mL 03/03/17 13:00 Total Protein 7.3 g/dL (5.8-8.3) 03/04/17 05:30 Albumin 4.0 g/dL (3.0-4.8) 03/04/17 05:30 Globulin 3.3 gm/dL 03/04/17 05:30 Albumin/Globulin Ratio 1.2 (1.1-1.8) 03/04/17 05:30 Triglycerides 94 mg/dL (35-160) 03/03/17 07:15 Cholesterol 165 mg/dL (130-200) 03/03/17 07:15 LDL Cholesterol Direct 113 mg/dL (0-129) 03/03/17 07:15 HDL Cholesterol 34 mg/dL (29-60) 03/03/17 07:15 TSH 3rd Generation 0.95 mIU/mL (0.46-4.68) 03/03/17 07:15 - Hospital Course Hospital Course: 56 y/o male with a PMHx DM, Asthma, CAD s/p PCI with 3 stents (2 placed in 2015 and 1 placed in 03/2016), h/o PE (11/2014) presents to the ED with the complaint of waking up from his sleep and vomiting earlier tonight. Patient reports that he woke up from his sleep, felt nauseated and began vomiting. He relays that his vomitus is nonbilious/nonbloody. He also reported chest tightness during his episodes of vomiting. He denied any complaints of fever, chills, headache, shortness of breath, diarrhea, palpitations, diaphoresis, neck /arm or jaw pain. He did report some light headedness after vomiting. He sleeps at the [facility] and called an ambulance because he was concerned about his chest discomfort. Patient states he had a stress test performed last year which was negative. He currently states his chest pain is a 0/10, is no longer nauseated and is resting comfortably. In the ED he was treated with Zofran and pepcid IV as well as IVF hydration. An additional 2 sets of cardiac enzymes resulted negative; continue ASA/plavix; check FLP and consider statin if LDL > 70 (previous records show LDL of 55). Unlikely cardiac in nature as the patient has had complete resolution of his symptoms with IV Zofran. cardiac consultation with Dr. Kong, recommended cardiac cath - resulted in no occlusive disease. Pt had Leukocytosis - likely reactive; patient does not have any systemic complaints to suggest an infection; U/S of the abdomen was done and is normal. Vomiting - resolved; possible gastroenteritis vs gastroparesis; will place the patient on IVF hydration, start a diabetic diet for breakfast - resolved during his stay. Pt has a history of PE - diagnosed with PE in 2014, as per patient, will continue his home dose of 5mg po bid as per cardio with fu. Pt had complaints of dizziness after cardiac cath, and CTH was performed and resulted negative for acute intracranial pathology,orthostatics were negative and pt was provided with meclizine for symptomatic relief. Pt dizziness resolved, and is ambulating with a steady gait. Upon DC pt is to fu with Dr. Aguirre, PMD, take medications as prescribed and fu with Cardio Dr. Kong or as per PMD. Discharge Exam - Head Exam Head Exam: ATRAUMATIC, NORMAL INSPECTION, NORMOCEPHALIC - Eye Exam Eye Exam: EOMI, Normal appearance, PERRL Pupil Exam: NORMAL ACCOMODATION, PERRL - ENT Exam ENT Exam: Mucous Membranes Moist - Neck Exam Neck exam: Full Rom - Respiratory Exam Respiratory Exam: Clear to PA & Lateral, NORMAL BREATHING PATTERN, UNREMARKABLE - Cardiovascular Exam Cardiovascular Exam: RRR, +S1, +S2 - GI/Abdominal Exam GI & Abdominal Exam: Normal Bowel Sounds, Soft. absent: Tenderness - Extremities Exam Extremities exam: normal capillary refill, normal inspection - Neurological Exam Neurological exam: Alert, CN II-XII Intact, Normal Gait, Oriented x3, Reflexes Normal - Psychiatric Exam Psychiatric exam: Normal Affect, Normal Mood - Skin Skin Exam: Dry, Intact, Normal Color, Warm Discharge Plan - Discharge Medications Prescriptions: Aspirin [Adult Low Dose Aspirin EC] 81 mg PO DAILY #15 tablet. Clopidogrel [Plavix] 75 mg PO DAILY #15 tab Meclizine [Antivert] 12.5 mg PO Q12H PRN #6 tab PRN Reason: Dizziness - Follow Up Plan Condition: STABLE Disposition: HOME/ ROUTINE Instructions: Aspirin (By mouth), Meclizine (By mouth), Clopidogrel (By mouth) , Coronary Artery Disease (GEN), Left Heart Catheterization (DC), Heart Healthy Diet (GEN), Meal Planning with Diabetes Exchanges (GEN) Additional Instructions: - Please continue elaquis 5 mg BID, and plavix - please follow up with your PMD Dr. Aguirre within 3-5 days - please fu with cardio dr kong within 3-5 days - if you experience any chest pain, shortness of breath or more nausea/vomiting , please return to ER for evaluation Please enroll and participate in a Weight Loss Reduction Program and Cardiac Risk Reduction Program. Diet: Heart Healthy and consistent carbohydrate diet Patient states his wish as to refuse the flu and the pneumococcal vaccines, as of this writing. Referrals: Zulema Aguirre MD [Primary Care Provider] - <Blayne uD - Last Filed: 03/04/17 16:16> Provider - Provider Date of Admission: 03/03/17 03:49 Attending physician: Blayne Du MD Primary care physician: Zulema Aguirre MD Hospital Course - Lab Results Lab Results: Most Recent Lab Values WBC 8.4 10^3/ul (4.5-11.0) D 03/04/17 05:30 RBC 5.50 10^6/uL (3.5-6.1) 03/04/17 05:30 Hgb 15.3 g/dL (14.0-18.0) 03/04/17 05:30 Hct 45.8 % (42.0-52.0) 03/04/17 05:30 MCV 83.3 fl (80.0-105.0) 03/04/17 05:30 MCH 27.8 pg (25.0-35.0) 03/04/17 05:30 MCHC 33.4 g/dl (31.0-37.0) 03/04/17 05:30 RDW 13.1 % (11.5-14.5) 03/04/17 05:30 Plt Count 212 10^3/uL (120.0-450.0) 03/04/17 05:30 MPV 10.5 fl (7.0-11.0) 03/04/17 05:30 Gran % 66.6 % (50.0-68.0) 03/04/17 05:30 Lymph % (Auto) 22.0 % (22.0-35.0) 03/04/17 05:30 Meigs % (Auto) 9.8 % (1.0-6.0) H 03/04/17 05:30 Eos % (Auto) 1.1 % (1.5-5.0) L 03/04/17 05:30 Baso % (Auto) 0.5 % (0.0-3.0) 03/04/17 05:30 Gran # 5.58 (1.4-6.5) 03/04/17 05:30 Lymph # 1.8 (1.2-3.4) 03/04/17 05:30 Meigs # 0.8 (0.1-0.6) H 03/04/17 05:30 Eos # 0.1 (0.0-0.7) 03/04/17 05:30 Baso # 0.04 K/mm3 (0.0-2.0) 03/04/17 05:30 PT 10.8 SECONDS (9.4-12.5) 03/03/17 01:30 INR 0.95 (0.93-1.08) 03/03/17 01:30 APTT 26.1 Seconds (25.1-36.5) 03/03/17 01:30 Sodium 142 mmol/L (132-148) 03/04/17 05:30 Potassium 4.2 mmol/L (3.6-5.0) 03/04/17 05:30 Chloride 105 mmol/L (98-107) 03/04/17 05:30 Carbon Dioxide 26 mmol/L (21-33) 03/04/17 05:30 Anion Gap 16 (10-20) 03/04/17 05:30 BUN 16 mg/dL (7-21) 03/04/17 05:30 Creatinine 0.8 mg/dl (0.8-1.5) 03/04/17 05:30 Est GFR ( Amer) > 60 03/04/17 05:30 Est GFR (Non-Af Amer) > 60 03/04/17 05:30 POC Glucose (mg/dL) 196 mg/dL (65-110) H 03/04/17 11:13 Random Glucose 137 mg/dL (70-110) H 03/04/17 05:30 Hemoglobin A1c 8.5 % (4.2-6.5) H 03/03/17 01:30 Calcium 9.5 mg/dL (8.4-10.5) 03/04/17 05:30 Total Bilirubin 0.9 mg/dL (0.2-1.3) 03/04/17 05:30 AST 29 U/L (17-59) 03/04/17 05:30 ALT 41 U/L (7-56) 03/04/17 05:30 Alkaline Phosphatase 61 U/L (38-126) 03/04/17 05:30 Lactate Dehydrogenase 386 U/L (333-699) 03/03/17 13:00 Total Creatine Kinase 80 U/L (35-230) 03/03/17 13:00 Troponin I < 0.01 ng/mL 03/03/17 13:00 Total Protein 7.3 g/dL (5.8-8.3) 03/04/17 05:30 Albumin 4.0 g/dL (3.0-4.8) 03/04/17 05:30 Globulin 3.3 gm/dL 03/04/17 05:30 Albumin/Globulin Ratio 1.2 (1.1-1.8) 03/04/17 05:30 Triglycerides 94 mg/dL (35-160) 03/03/17 07:15 Cholesterol 165 mg/dL (130-200) 03/03/17 07:15 LDL Cholesterol Direct 113 mg/dL (0-129) 03/03/17 07:15 HDL Cholesterol 34 mg/dL (29-60) 03/03/17 07:15 TSH 3rd Generation 0.95 mIU/mL (0.46-4.68) 03/03/17 07:15 Attending/Attestation - Attestation I have personally seen and examined this patient.: Yes I have fully participated in the care of the patient.: Yes I have reviewed all pertinent clinical information, including history, physical exam and plan: Yes Notes (Text): 03/04/17 16:12 attending note; Patient seen and examined with resident. Patient is a 56 -year-old male with past medical history of diabetes, Asthma, preoperative disease with stent placement 3 stents (2 placed in 08/2015 and 1 placed in 03/2016), h/o pulmonary embolus (11/2014) presents to the ED with the complaint of chest pain. Patient also had an episode of nausea vomiting. Patient was evaluated by collision repair technician Dr. Kong. Status post cardiac cath. Stent is open. Patient was observed overnight. Patient had minimum dizziness. No orthostatic changes. PT evaluation appreciated. Treated with meclizine. CT head is negative. patient takes aspirin and Plavix at home. Patient was on Eliquis which he stopped recently. Patient is advised to follow-up with Dr. rubin pot builder for outpatient. Patient is currently ambulating fine. patient has prescriptions at home. Will be discharged home with close follow-up with PMD Dr. Aguirre. follow-up with cardiology .
== END 2017-03-04 13:47 | disposition home or self-care (01) ==
LOC: ED 01:06 → ERH 03:49 → 2RSO 13:06
PROVIDERS: ADMIT Internal Medicine; ATTEND Internal Medicine
DX: I25.110 Atherosclerotic heart disease of native coronary artery with unstable angina pectoris (principal); J45.909 Unspecified asthma, uncomplicated; I10 Essential (primary) hypertension; E11.9 Type 2 diabetes mellitus without complications; E78.5 Hyperlipidemia, unspecified; K21.9 Gastro-esophageal reflux disease without esophagitis; Z91.14 Patient's other noncompliance with medication regimen; Z95.5 Presence of coronary angioplasty implant and graft; Z79.4 Long term (current) use of insulin; Z86.718 Personal history of other venous thrombosis and embolism; Z86.711 Personal history of pulmonary embolism; Z87.891 Personal history of nicotine dependence
CPT/HCPCS: 36415; 70450; 71045; 76705; 80053; 80061; 82550; 82948; 83036; 83615; 84443; 84484; 85025; 85027; 85610; 85730; 93005; 93458; 96374; 96375; 97116; 97162; 99152; 99153; 99284; C1769; C1887; G0378; G8978; G8979; J1644; J2250; J2405; J3010; J7030; J7040

== ENCOUNTER 2017-04-26 10:30 | Emergency (ER) | payer OTHER ==
[2017-04-26 10:32] VITALS: BMI 28.5
[2017-04-26 10:54] VITALS: TEMP 99.3
--- NOTE | 2017-04-26 11:01 | ED PDOC ---
Arrival/HPI - General Historian: Patient - General Chief Complaint: Chest Pain Time Seen by Provider: 04/26/17 10:38 - History of Present Illness Narrative History of Present Illness (Text): 04/26/17 10:55 56yo male with PMHx of CAD with multiple stents 2016/2017, hypertension, Diabetes, asthma bib BLS with complaint of chest pain with palpitation and dizziness s/pt having verbal confrontation. Patient notes that he started having rapid heart beat with with dizziness, pressure like chest pain, and his BP was 170/100 when he had a verbal confrontation with somebody this morning. Notes that the chest pain and dizziness is currently improved, but he still have mild chest pain. He was given ASA enroute to ASA. He denies nausea, vomiting, back pain, abdominal pain, headache, focal weakness, SOB, diaphoresis , any other complaint at this time. (Estela Villalobos) Past Medical History - Provider Review Nursing Documentation Reviewed: Yes - Infectious Disease Hx of Infectious Diseases: None - Tetanus Immunization Tetanus Immunization: Unknown - Cardiac Hx Cardiac Disorders: Yes Hx Hypertension: Yes - Pulmonary Hx Respiratory Disorders: Yes (PULMONARY EMBOLISM -) Hx Asthma: Yes Hx Bronchitis: Yes Hx Pneumonia: Yes Hx Pulmonary Edema: Yes (2015) - Neurological Hx Neurological Disorder: No - HEENT Hx HEENT Disorder: No - Renal Hx Renal Disorder: No - Endocrine/Metabolic Hx Endocrine Disorders: Yes Hx Diabetes Mellitus Type 2: Yes - Hematological/Oncological Hx Blood Disorders: No - Integumentary Hx Dermatological Disorder: No - Musculoskeletal/Rheumatological Hx Falls: No - Gastrointestinal Hx Gastrointestinal Disorders: Yes Hx Gastroesophageal Reflux: Yes - Genitourinary/Gynecological Hx Genitourinary Disorders: No - Psychiatric Hx Psychophysiologic Disorder: No Hx Substance Use: No - Surgical History Hx Cardiac Catheterization: Yes (x3) Other/Comment: 3 stents - Anesthesia Hx Anesthesia: Yes Hx Anesthesia Reactions: No Hx Malignant Hyperthermia: No - Suicidal Assessment Feels Threatened In Home Enviroment: No Family/Social History - Physician Review Nursing Documentation Reviewed: Yes Family/Social History: Unknown Family HX Smoking Status: Former Smoker Hx Alcohol Use: No Hx Substance Use: No Hx Substance Use Treatment: No Allergies/Home Meds Allergies/Adverse Reactions: Allergies peanut Allergy (Verified 04/26/17 10:43) RASH Penicillins Adverse Reaction (Verified 04/26/17 10:43) RASH Home Medications: Home Meds Medication Instructions Recorded Confirmed MetFORMIN [glucoPHAGE] 1 tab PO BID 04/08/16 04/26/17 GlipiZIDE [Glucotrol] 10 mg PO DAILY 11/03/16 04/26/17 Insulin Glargine, Recombina 1 unit SC ACHS 04/26/17 04/26/17 [Lantus] Review of Systems - Physician Review All systems were reviewed & negative as marked: Yes - Review of Systems Constitutional: Normal Eyes: Normal ENT: Normal Respiratory: Normal Cardiovascular: Chest Pain Gastrointestinal: Normal Genitourinary Male: Normal Musculoskeletal: Normal Skin: Normal Neurological: Normal Endocrine: Normal Hemo/Lymphatic: Normal Psychiatric: Normal Physical Exam Vital Signs Reviewed: Yes Temperature: Afebrile Blood Pressure: Normal Pulse: Regular Respiratory Rate: Normal Appearance: Positive for: Well-Appearing, Non-Toxic, Comfortable Pain Distress: None Mental Status: Positive for: Alert and Oriented X 3 - Systems Exam Head: Present: Atraumatic, Normocephalic Pupils: Present: PERRL Extroacular Muscles: Present: EOMI Conjunctiva: Present: Normal Mouth: Present: Moist Mucous Membranes Neck: Present: Normal Range of Motion Respiratory/Chest: Present: Clear to Auscultation, Good Air Exchange. No: Respiratory Distress, Accessory Muscle Use, Wheezes, Decreased Breath Sounds, Rales, Retracting, Rhonchi, Tachypneic Cardiovascular: Present: Regular Rate and Rhythm, Normal S1, S2. No: Murmurs Abdomen: Present: Normal Bowel Sounds. No: Tenderness, Distention, Peritoneal Signs Back: Present: Normal Inspection Upper Extremity: Present: Normal Inspection. No: Cyanosis, Edema Lower Extremity: Present: Normal Inspection. No: Edema Neurological: Present: GCS=15, CN II-XII Intact, Speech Normal Skin: Present: Warm, Dry, Normal Color. No: Rashes Psychiatric: Present: Alert, Oriented x 3, Normal Insight, Normal Concentration Vital Signs Temp Pulse Resp BP Pulse Ox 04/26/17 12:42 84 20 126/77 95 04/26/17 10:52 99.3 F 04/26/17 10:30 103 H 18 142/85 96 Medical Decision Making ED Course and Treatment: 04/26/17 19:03 Pt in ED for stated history. He notes that his symptoms resolved in ED. His CE was negative. Pt's symptoms was while he was having argument. He notes that he did not take his medications today. He was given Insulin for BS of 330 EKG NSR @99bpm with no ST changes PT declined chest xray in ED Pt's previous records was reviewed and pt had cardiac Cath on 03/04/17 that showed patent stent. Pt is currently on Plavix and ASA. Case was DW Dr. Garcia and he recommends that pt be DC home to f/u with Dr. Kong secondary to recent history of cardiac catherization. Result and plan was DW the pt and he expressed understanding. Advised TRT ED for any new symptoms, otherwise f/u with Dr. Kong. (Wilfredo,Estela Ferro) Patient with cardiac cath 03/04/17 that was reviewed. EKG unremarkable for acute changes. Chest pain not worse with exertion, no sob or diaphoresis. He has significant past cardiac history although current presentation atypical for cardiac chest pain, and also recent unremarkable cath for acute blockage. (Ximena Salcido) - Lab Interpretations Lab Results: 04/26/17 11:10 04/26/17 11:10 Lab Results 04/26/17 11:50: Urine Color Yellow, Urine Appearance Clear, Urine pH 6.0, Ur Specific [place] 1.015, Urine Protein Negative, Urine Glucose (UA) >=1000, Urine Ketones Negative, Urine Blood Negative, Urine Nitrate Negative, Urine Bilirubin Negative, Urine Urobilinogen 0.2, Ur Leukocyte Esterase Negative 04/26/17 11:10: Sodium 139, Potassium 4.4, Chloride 105, Carbon Dioxide 23, Anion Gap 16, BUN 18, Creatinine 0.8, Est GFR ( Amer) > 60, Est GFR (Non- Af Amer) > 60, Random Glucose 330 H* D, Calcium 10.4, Magnesium 2.0, Total Bilirubin 0.4, AST 20, ALT 34, Alkaline Phosphatase 65, Lactate Dehydrogenase 363, Total Creatine Kinase 85, Troponin I < 0.01, Total Protein 7.6, Albumin 4.3 , Globulin 3.3, Albumin/Globulin Ratio 1.3 04/26/17 11:10: PT 12.2, INR 1.06, APTT 28.0 04/26/17 11:10: WBC 7.3, RBC 5.59, Hgb 15.7, Hct 46.6, MCV 83.4, MCH 28.1, MCHC 33.7, RDW 13.1, Plt Count 177, MPV 10.0, Gran % 74.8 H, Lymph % (Auto) 16.8 L, [place] % (Auto) 7.2 H, Eos % (Auto) 0.8 L, Baso % (Auto) 0.4, Gran # 5.44, Lymph # (Auto) 1.2, [place] # (Auto) 0.5, Eos # (Auto) 0.1, Baso # (Auto) 0.03 - Medication Orders Current Medication Orders: Discontinued Medications Insulin Human Regular (Humulin R) 4 units IVP ONCE STA Stop: 04/26/17 12:03 Last Admin: 04/26/17 12:17 Dose: 4 units MAR Blood Glucose Document 04/26/17 12:17 SRE (Rec: 04/26/17 12:19 SRE [id number]) Blood Glucose Finger Stick Blood Glucose (70-120) 330 IVP Administration Document 04/26/17 12:17 SRE (Rec: 04/26/17 12:19 SRE [id number]) Charges for Administration # of IVP Administrations 1 Disposition/Present on Arrival - Present on Arrival Any Indicators Present on Arrival: No History of DVT/PE: Yes History of Uncontrolled Diabetes: No Urinary Catheter: No History of Decub. Ulcer: No History Surgical Site Infection Following: None - Disposition Have Diagnosis and Disposition been Completed?: Yes Disposition Time: 13:30 Patient Plan: Discharge - Disposition Diagnosis: Chest pain, Diabetes mellitus type 2 Disposition: HOME/ ROUTINE Condition: STABLE Discharge Instructions (ExitCare): Type 2 Diabetes, Chest Pain, Chest Pain (ED) Additional Instructions: Follow up with your doctor/Plunger Scoop Operator Return to ED for any new or worsening symptoms Referrals: Zulema Aguirre MD [Primary Care Provider] - Follow up with primary Forms: [employer] (Welsh)
[2017-04-26 11:17] LABS: BASO # 0.03 K/mm3 (0.0-2.0); BASO % 0.4 % (0.0-3.0); EOS # 0.1 (0.0-0.7); EOS % 0.8 % (1.5-5.0); GRAN # 5.44 (1.4-6.5); GRAN % 74.8 % (50.0-68.0); HEMOGLOBIN 15.7 g/dL (14.0-18.0); LYMPH # 1.2 (1.2-3.4); LYMPH % 16.8 % (22.0-35.0); MEAN CELL VOLUME 83.4 fl (80.0-105.0); MEAN CORPUSCULAR HEMOGLOBIN 28.1 pg (25.0-35.0); MEAN CORPUSCULAR HGB CONC 33.7 g/dl (31.0-37.0); MONO # 0.5 (0.1-0.6); MONO % 7.2 % (1.0-6.0); RBC 5.59 10^6/uL (3.5-6.1); RED CELL DISTRIBUTION WIDTH 13.1 % (11.5-14.5); WHITE BLOOD COUNT 7.3 10^3/ul (4.5-11.0)
[2017-04-26 11:27] LABS: INR 1.06 (0.93-1.08); PROTHROMBIN TIME 12.2 SECONDS (9.4-12.5)
[2017-04-26 11:41] LABS: ALB/GLOB RATIO 1.3 (1.1-1.8); ALBUMIN 4.3 g/dL (3.0-4.8); ALT/SGPT 34 U/L (7-56); AST/SGOT 20 U/L (17-59); BLOOD UREA NITROGEN 18 mg/dL (7-21); CALCIUM 10.4 mg/dL (8.4-10.5); GFR AFRICAN-AMERICAN > 60; GFR NON-AFRICAN AMERICAN > 60
[2017-04-26 11:44] LABS: TROPONIN I < 0.01 ng/mL
[2017-04-26 12:02] LABS: URINE BILIRUBIN NEGATIVE (NEGATIVE); URINE BLOOD NEGATIVE (NEGATIVE); URINE GLUCOSE (UA) >=1000 mg/dL (NEGATIVE); URINE LEUKOCYTE ESTERASE NEGATIVE Leu/uL (NEGATIVE); URINE PROTEIN NEGATIVE mg/dL (<30 mg/dL); URINE UROBILINOGEN 0.2 E.U./dL (<1 E.U./dL)
[2017-04-26] MEDS ORDERED: Insulin Regular 1 UNITS/0.01 ML ML IVP STA (12:02)
[2017-04-26 12:03] LABS: URINE APPEARANCE CLEAR (CLEAR); URINE COLOR YELLOW (YELLOW)
[2017-04-26 12:44] VITALS: BP 126/77; PULSE 84; RESP 20; O2SAT 95
--- NOTE | 2017-04-26 16:42 | CARD ---
APPROVED REPORT EKG Measurement Heart [id number] <Conclusion> Normal sinus rhythm RSR' or QR pattern in V1 suggests right ventricular conduction delay Borderline ECG
== END 2017-04-26 13:35 | disposition home or self-care (01) ==
LOC: ED 10:30
DX: R07.9 Chest pain, unspecified (principal); E11.9 Type 2 diabetes mellitus without complications; I10 Essential (primary) hypertension; Z95.5 Presence of coronary angioplasty implant and graft; Z87.891 Personal history of nicotine dependence

== ENCOUNTER 2017-12-14 22:51 | Emergency (ER) | payer OTHER ==
[2017-12-14 22:52] VITALS: BMI 28.5
[2017-12-15 00:15] LABS: BASO # 0.07 K/mm3 (0.0-2.0); BASO % 0.8 % (0.0-3.0); EOS # 0.3 (0.0-0.7); EOS % 3.1 % (1.5-5.0); GRAN # 4.25 (1.4-6.5); HEMOGLOBIN 15.1 g/dL (14.0-18.0); LYMPH # 3.1 (1.2-3.4); LYMPH % 36.7 % (22.0-35.0); MEAN CELL VOLUME 82.8 fl (80.0-105.0); MEAN CORPUSCULAR HEMOGLOBIN 27.7 pg (25.0-35.0); MEAN CORPUSCULAR HGB CONC 33.5 g/dl (31.0-37.0); MEAN PLATELET VOLUME 10.3 fl (7.0-11.0); MONO # 0.7 (0.1-0.6); MONO % 8.4 % (1.0-6.0); RBC 5.45 10^6/uL (3.5-6.1); WHITE BLOOD COUNT 8.3 10^3/uL (4.5-11.0)
[2017-12-15 00:37] LABS: B-TYPE NATRIURETIC PEPTIDE 58.8 pg/mL (0-450); TROPONIN I < 0.01 ng/mL
[2017-12-15 00:49] LABS: ALB/GLOB RATIO 1.3 (1.1-1.8); ALBUMIN 4.4 g/dL (3.0-4.8); ALT/SGPT 32 U/L (7-56); AST/SGOT 28 U/L (17-59); BLOOD UREA NITROGEN 22 mg/dL (7-21); GFR NON-AFRICAN AMERICAN > 60
[2017-12-15] MEDS ORDERED: Insulin Regular 1 UNITS/0.01 ML ML SC STA (01:07)
--- NOTE | 2017-12-15 01:09 | ED PDOC ---
Arrival/HPI <Serjio Arzate - Last Filed: 12/15/17 03:35> - General Historian: Patient - History of Present Illness Narrative History of Present Illness (Text): This is a 57 year old male with PMH of DVT in november 2004, HTN, IDDM2, CAD with 3 stents who presents with chest pain tonight. Pain described as midsternal, feels like "someone is holding heart in a fist," radiating to the right arm, 9/10 with sob, blurry vision, lightheadedness, dizziness, headache, pa lpitations. Pt is asymptomatic at this time. He denies fever, chills, tearing quality of the chest pain, abdominal pain, n/v/d, leg pain or swelling, prolonged immobility, car trips lasting longer than 3 hours, airplane trips, recent travel. PMD: [facility]: [facility] PMH: DVT in november 2004, HTN, IDDM2, CAD with 3 stents PSH: stents Meds: see MAR Allx: peanuts, PCN Social hx: quit etoh in 2009, quit smoking more than 30 years ago, denies illicit drug use <Christopher Jorge - Last Filed: 12/15/17 03:53> - General Chief Complaint: Chest Pain Time Seen by Provider: 12/14/17 23:32 Past Medical History - Provider Review Nursing Documentation Reviewed: Yes - Infectious Disease Hx of Infectious Diseases: None - Tetanus Immunization Tetanus Immunization: Unknown - Cardiac Hx Cardiac Disorders: Yes Hx Hypertension: Yes - Pulmonary Hx Respiratory Disorders: Yes (PULMONARY EMBOLISM 10-15) Hx Asthma: Yes Hx Bronchitis: Yes Hx Pneumonia: Yes Hx Pulmonary Edema: Yes (2014) - Neurological Hx Neurological Disorder: No - HEENT Hx HEENT Disorder: No - Renal Hx Renal Disorder: No - Endocrine/Metabolic Hx Endocrine Disorders: Yes Hx Diabetes Mellitus Type 2: Yes - Hematological/Oncological Hx Blood Disorders: No - Integumentary Hx Dermatological Disorder: No - Musculoskeletal/Rheumatological Hx Falls: No - Gastrointestinal Hx Gastrointestinal Disorders: Yes Hx Gastroesophageal Reflux: Yes - Genitourinary/Gynecological Hx Genitourinary Disorders: No - Psychiatric Hx Psychophysiologic Disorder: No Hx Substance Use: No - Surgical History Hx Cardiac Catheterization: Yes (x3 last one 03/2016) Other/Comment: 3 stents - Anesthesia Hx Anesthesia: Yes Hx Anesthesia Reactions: No Hx Malignant Hyperthermia: No - Suicidal Assessment Feels Threatened In Home Enviroment: No <Christopher Jorge Filed: 12/15/17 03:53> Family/Social History - Physician Review Nursing Documentation Reviewed: Yes Family/Social History: Unknown Family HX Smoking Status: Former Smoker Hx Alcohol Use: No Hx Substance Use: No Hx Substance Use Treatment: No <Christopher Jorge Last Filed: 12/15/17 03:53> Allergies/Home Meds <Serjio Arzate - Last Filed: 12/15/17 03:35> <Christopher Jorge - Last Filed: 12/15/17 03:53> Allergies/Adverse Reactions: Allergies peanut Allergy (Verified 12/14/17 22:52) RASH Penicillins Adverse Reaction (Verified 12/14/17 22:52) RASH Home Medications: Home Meds Medication Instructions Recorded Confirmed MetFORMIN [glucoPHAGE] 1 tab PO BID 04/08/16 12/14/17 GlipiZIDE [Glucotrol] 10 mg PO DAILY 11/03/16 12/14/17 Insulin Glargine, Recombina 1 unit SC ACHS 04/26/17 12/14/17 [Lantus] Review of Systems - Review of Systems Constitutional: Normal Eyes: Vision Changes ENT: Normal Respiratory: SOB Cardiovascular: Chest Pain Gastrointestinal: Normal Skin: Normal Neurological: Dizziness <Christopher Jorge Last Filed: 12/15/17 03:53> Physical Exam Vital Signs Pulse Resp BP Pulse Ox 12/15/17 02:18 82 18 137/90 98 12/14/17 22:55 79 16 141/99 H 97 <[email or web address] - Last Filed: 12/15/17 03:35> Vital Signs Pulse Resp BP Pulse Ox 12/14/17 22:55 79 16 141/99 H 97 Temperature: Afebrile Blood Pressure: Hypertensive Pulse: Regular Respiratory Rate: Normal Appearance: Positive for: Well-Appearing, Non-Toxic, Comfortable Pain Distress: None Mental Status: Positive for: Alert and Oriented X 3 - Systems Exam Head: Present: Atraumatic, Normocephalic Extroacular Muscles: Present: EOMI Conjunctiva: Present: Normal Mouth: Present: Moist Mucous Membranes Neck: Present: Normal Range of Motion Respiratory/Chest: Present: Clear to Auscultation, Good Air Exchange. No: Respiratory Distress, Accessory Muscle Use, Wheezes Cardiovascular: Present: Regular Rate and Rhythm, Normal S1, S2 Abdomen: Present: Normal Bowel Sounds. No: Tenderness, Distention, Peritoneal Signs, Rebound, Guarding Back: Present: Normal Inspection Upper Extremity: Present: Normal Inspection, NORMAL PULSES. No: Edema Lower Extremity: Present: Normal Inspection, NORMAL PULSES, Capillary Refill < 2 s. No: CALF TENDERNESS Neurological: Present: GCS=15 Skin: Present: Warm, Dry Psychiatric: Present: Alert, Oriented x 3 <Christopher Jorge - Last Filed: 12/15/17 03:53> Medical Decision Making ED Course and Treatment: 12/15/17 01:50 57 y/o M presenting to the emergency department complaining of chest pain. In agreement with resident note, which includes further HPI details. Patient was seen and evaluated with resident, came up with plan and treatment together. - Lab Interpretations Lab Results: 12/14/17 23:00 12/14/17 23:00 Lab Results 12/14/17 23:00: Sodium 140, Potassium 4.3, Chloride 102, Carbon Dioxide 29, Anion Gap 14, BUN 22 H, Creatinine 0.8, Est GFR ( Amer) > 60, Est GFR (Non-Af Amer) > 60, Random Glucose 315 H*, Calcium 10.0, Phosphorus 3.6, Magnesium 1.9, Total Bilirubin 0.3, AST 28, ALT 32, Alkaline Phosphatase 81, Troponin I < 0.01, NT-Pro-B Natriuret Pep 58.8, Total Protein 7.9, Albumin 4.4, Globulin 3.5, Albumin/Globulin Ratio 1.3 12/14/17 23:00: WBC 8.3, RBC 5.45, Hgb 15.1, Hct 45.1, MCV 82.8, MCH 27.7, MCHC 33.5, RDW 13.0, Plt Count 244, MPV 10.3, Gran % 51.0, Lymph % (Auto) 36.7 H, [place] % (Auto) 8.4 H, Eos % (Auto) 3.1, Baso % (Auto) 0.8, Gran # 4.25, Lymph # (Auto) 3.1, [place] # (Auto) 0.7 H, Eos # (Auto) 0.3, Baso # (Auto) 0.07 - RAD Interpretation Radiology Orders: 12/14/17 23:49 CXR [CHEST PORTABLE] [RAD] Stat - Medication Orders Current Medication Orders: Discontinued Medications Insulin Human Regular (Humulin R) 4 units SC STAT STA Stop: 12/15/17 01:08 Last Admin: 12/15/17 01:52 Dose: 4 units MAR Blood Glucose Document 12/15/17 01:52 RD (Rec: 12/15/17 01:52 RD [id number]) Blood Glucose Finger Stick Blood Glucose (70-120) 315 Subcutaneous Administrations Document 12/15/17 01:52 RD (Rec: 12/15/17 01:52 RD [id number]) Injection Site MAR Injection Site Right Arm Charges for Administration # of Subcutaneous Administrations 1 <Serjio Arzate - Last Filed: 12/15/17 03:35> ED Course and Treatment: Pt currently asymptomatic. CXR, EKG, troponin to r/o cardiac origin due to risk factors of CAD with stents, DM, HTN. - Lab Interpretations Lab Results: 12/14/17 23:00 12/14/17 23:00 Lab Results 12/14/17 23:00: Sodium 140, Potassium 4.3, Chloride 102, Carbon Dioxide 29, Anion Gap 14, BUN 22 H, Creatinine 0.8, Est GFR ( Amer) > 60, Est GFR (Non-Af Amer) > 60, Random Glucose 315 H*, Calcium 10.0, Phosphorus 3.6, Magnesium 1.9, Total Bilirubin 0.3, AST 28, ALT 32, Alkaline Phosphatase 81, Troponin I < 0.01, NT-Pro-B Natriuret Pep 58.8, Total Protein 7.9, Albumin 4.4, Globulin 3.5, Albumin/Globulin Ratio 1.3 12/14/17 23:00: WBC 8.3, RBC 5.45, Hgb 15.1, Hct 45.1, MCV 82.8, MCH 27.7, MCHC 33.5, RDW 13.0, Plt Count 244, MPV 10.3, Gran % 51.0, Lymph % (Auto) 36.7 H, [place] % (Auto) 8.4 H, Eos % (Auto) 3.1, Baso % (Auto) 0.8, Gran # 4.25, Lymph # (Auto) 3.1, [place] # (Auto) 0.7 H, Eos # (Auto) 0.3, Baso # (Auto) 0.07 - RAD Interpretation Narrative RAD Interpretations (Text): CXR shows no active disease; as read by ED attending. Radiology Orders: 12/14/17 23:49 CXR [CHEST PORTABLE] [RAD] Stat - EKG Interpretation EKG Interpretation (Text): EKG shows NSR at 80 bpm, no acute STTW changes; KS is 170 QTc is 433; as read by ED attending. Interpreted by ED Physician: Yes - Medication Orders Current Medication Orders: Insulin Human Regular (Humulin R) 4 units SC STAT STA Stop: 12/15/17 01:08 <Christopher Jorge - Last Filed: 12/15/17 03:53> - PA / MINE ENVIRONMENTAL ENGINEER / Resident Statement MD/DO has reviewed & agrees with the documentation as recorded. MD/DO has examined the patient and agrees with the treatment plan. - Scribe Statement The provider has reviewed the documentation as recorded by the Dae Barger All medical record entries made by the Dae were at my direction and personally dictated by me. I have reviewed the chart and agree that the record accurately reflects my personal performance of the history, physical exam, medical decision making, and the department course for this patient. I have also personally directed, reviewed, and agree with the discharge instructions and disposition. <Serjio Arzate - Last Filed: 12/15/17 03:35> Disposition/Present on Arrival <Serjio Arzate - Last Filed: 12/15/17 03:35> - Present on Arrival Any Indicators Present on Arrival: Yes History of DVT/PE: Yes History of Uncontrolled Diabetes: No Urinary Catheter: No History of Decub. Ulcer: No History Surgical Site Infection Following: None - Disposition Have Diagnosis and Disposition been Completed?: Yes Disposition Time: 01:38 Patient Plan: Discharge <Christopher Jorge - Last Filed: 12/15/17 03:53> - Disposition Diagnosis: Chest pain, Hyperglycemia Disposition: HOME/ ROUTINE Condition: GOOD Discharge Instructions (ExitCare): Chest Pain (DC), Hyperglycemia, Adult (DC), Prediabetes (DC), Chest Pain (ED) Print Language: TURKISH Additional Instructions: All medical record entries made by the Scribe were at my direction and personally dictated by me. I have reviewed the chart and agree that the record accurately reflects my personal performance of the history, physical exam, medical decision making, and the department course for this patient. I have also personally directed, reviewed, and agree with the discharge instructions and disposition. Referrals: Bryant Kong MD [Staff Provider] - Follow up with primary Forms: [employer] (Kyrgyz)
[2017-12-15 02:19] VITALS: BP 137/90; PULSE 82; RESP 18; O2SAT 98
--- NOTE | 2017-12-15 09:26 | RAD ---
Date of service: 12/14/2017 HISTORY: chest pain COMPARISON: 03/03/2017 FINDINGS: LUNGS: No active pulmonary disease. PLEURA: No significant pleural effusion identified, no pneumothorax apparent. CARDIOVASCULAR: No aortic atherosclerotic calcification present. Normal cardiac size. No pulmonary vascular congestion. OSSEOUS STRUCTURES: No significant abnormalities. VISUALIZED UPPER ABDOMEN: Normal. OTHER FINDINGS: None. IMPRESSION: No active disease.
--- NOTE | 2017-12-15 10:30 | CARD ---
APPROVED REPORT Date of service: 12/14/2017 EKG Measurement Heart [id number] <Conclusion> Normal sinus rhythm RVCD Improved repolarization c/w ECG 04/26/17
== END 2017-12-15 02:18 | disposition home or self-care (01) ==
LOC: ED 22:51
DX: R07.9 Chest pain, unspecified (principal); E11.65 Type 2 diabetes mellitus with hyperglycemia; Z79.4 Long term (current) use of insulin; I25.10 Atherosclerotic heart disease of native coronary artery without angina pectoris; I10 Essential (primary) hypertension; Z86.718 Personal history of other venous thrombosis and embolism; Z95.5 Presence of coronary angioplasty implant and graft; Z87.891 Personal history of nicotine dependence

== ENCOUNTER 2018-04-27 07:40 | Outpatient (CLI) | payer OTHER | END 2018-04-27 07:41 | disposition home or self-care (01) | LOC: CARDIO 07:40 ==